=== PATIENT | female | born 1965 | race Caucasian/White ===

== ENCOUNTER 2024-11-26 13:33 | Outpatient (AMB) | payer OTHER, SELFPAY ==
--- OUTSIDE RECORDS SUMMARY | 2024-03-12 10:45 | XMS_ITS ---
Author Organization [facility] Address [address] [place] [address] Care Team Providers Care Diagnostic Technician Name Role Phone Siddharth HUYNH, Percy Primary Care Provider Unavail Kevin Fajardo [phone] Encounters Encounter Location Date Provider Diagnosis [address] [address] 03/12/2024 Kevin Morrow Plan Of Treatment No Information Progress Notes * Chelsea ROSALESdevoneDOB: 7 (59 yo F)Acc No.[id number]:03/12/2024 Progress Note Patient: Ina MAIN Provider: Dylon Morrow D.P.M. :1965 A ge:58 Y S ex:Female Date:03/12/2024 Address:[address] [place], [place] Pcp:Percy Messina MD Subjective: * Chief Complaints: * * Medical History: Objective: * Vitals: Assessment: Plan: * Treatment: * Images: * The named appointment provid er may or may not be the originator of this progress note, and it is not deemed complete until electronically signed by the appointment provider. Sign off status: Pending * Provider: Dylon Morrow D.P.M. Date: 1 Generated for Alo navarro/Ida/eTransmitting on: 0 11/26/2024 05:28 PM EDT
--- OUTSIDE RECORDS SUMMARY | 2024-03-21 10:15 | XMS_ITS ---
Author Organization [facility] Address [address] [place] [address] Care Team Providers Care Interlacer Name Role Phone Siddharth HUYNH, Percy Primary Care Provider Unavail Kevin Fajardo [phone] Encounters Encounter Location Date Provider Diagnosis [address] [address] 03/21/2024 Kevin Morrow Plan Of Treatment No Information Progress Notes * ELANChelseadevoneDOB: 7 (59 yo F)Acc No.[id number]:03/21/2024 Progress Note Patient: Ina MAIN Provider: Dylon Morrow D.P.M. :1965 A ge:58 Y S ex:Female Date:03/21/2024 Address:[address] [place], [place] Pcp:Percy Messina MD Subjective: * Chief Complaints: [...] 0 03/21/2024 Generated for Alo navarro/Ida/eTransmitting on: 0 11/26/2024 05:28 PM EDT
--- NOTE | 2024-11-26 13:35 | A.OFFVIS_ITS ---
Vital Signs 11/26/24 13:41 Height 5 ft Weight 148 lb 2 oz BMI 28.9 BP 132/80 Blood Pressure Location Rt brachial Position Sitting Pulse 85 Pulse Source Pulse Oximeter Pulse Oximetry (%) 98 Oxygen Delivery Method Room Air Intake Visit Reasons: Botox Intake Note: Botox Fitness Centre Manager Required: No Accompanied by: customer care assistant - Marilu Allergies morphine Allergy (Mild, Verified 11/26/24 13:36) Unresponsive HPI Comments Details: ? 59y/o female comes for treatment of migraines with botox.How many migraine days prior to botox How long do the migraines last Intensity of migraine ER visits related to migraine Effectiveness of botox from last two treatment(s) How many migraine days since receiving treatment: Change? in intensity of migraine? Change in frequency of migraine? Change in use of acute medication for migraine? Change in quality of life? ER visits related to migraine? Explanation for any gaps in treatment- Have at least three months elapsed since last treatment (Last botox date - f requency of injections) 3 months ??? Most frequent reported adverse reactions following injection of botox for chronic migraine include neck pain (9%), headache(5%), eyelid ptosis(4%), migraine(4%), muscular weakness(4%), musculuskeletal stiffness(4%), bronchitis(3%), injection site pain (3%), musculoskeletal pain(3%), myalgia(3%), facial paresis(2%), HTN(2%) and muscle spasms(2%) were discussed in detail. ??? Botulinum toxin typeA 200units Lot no [id number] expiration Jan 2027 was diluted with 4 cc of normal saline . ??? Muscles injected- ??? Frontalis 4 sites ??? Procerus 1 site ??? Manager Commodities- 2 sites ??? Temporalis- 8 sites ??? Occipitalis- 6 sites ??? Cervical paraspinals- 4 sites ??? Trapezius- 6 sites- 10 units each ??? 5 units each in 31 site ??? Total use- 185units ??? Discarded-15units [facility] Medical History Chronic migraine without aura or status migrainosus Bronchitis Asthma Diabetes Arthritis Neck pain Back pain Anxiety Depression Chronic migraine with aura Spastic quadriparesis Blindness Surgical History Hx laparoscopic cholecystectomy History of eye removal Hx of breast reduction, elective Social History Alcohol intake: never Patient Tobacco Use Status: Never used Tobacco Physical Exam Vital Signs: Last Vital Signs Pulse 85 11/26/24 13:41 BP 132/80 11/26/24 13:41 Pulse Ox 98 11/26/24 13:41 Oxygen Delivery Method Room Air 11/26/24 13:41 BMI result Body Mass Index 28.9 Const General: cooperative Nutritional Appearance: average body habitus Orientation/consciousness: patient oriented x3 HEENT Head: Yes normal to inspection Neck Other: decreased range of motion Neuro General: patient oriented x3 Office Procedures Botulinum toxin Injection 23728 - Migraine Procedure code (CPT) selection complete Office Meds onabotulinumtoxinA 200 unit solution for injection Performing Provider: Bernice Song MD Performing Location: [facility] Administered by: Bernice Song MD on 11/26/24 14:13 Dose Route Admin Location Dispensed Lot Number Expiration Date [facility] [employer] Operator 185 unit subcut 200 units [id number] ALLERGAN /BOTOX Total Dispensed Waste 200 units 7.5 % Comments: see hpi Assessment & Plan Assessment & Plan (1) Chronic migraine without aura or status migrainosus: Code(s): G43.709 - Chronic migraine without aura, not intractable, without status migrainosus Category: Medical Qualifiers: Intractability: intractable Qualified Code(s): G43.719 - Chronic migraine without aura, intractable, without status migrainosus Plan Patient tolerated the procedure well she will call with any side effects. Orders: Orders AMB Botulinum toxin Injection Today G43.719 - Chronic migraine without aura, intractable, without status migrainosus Coding Level of Care Code Est Pt Level 1 (53017) Diagnoses Intractable chronic migraine without aura and without status migrainosus G43.719 Intractability: intractable CPT Codes Botox Injection - Botox 3: 23024 - Migraine ([id number])
[2024-11-26 13:41] VITALS: BP 132/80; PULSE 85; O2SAT 98; BMI 28.9
--- OUTSIDE RECORDS SUMMARY | 2024-11-26 17:28 | XMS_ITS | Encounter Summary ---
Author Organization [email or web address] Address [address] [place] [address] Care Team Providers Care Table Assembler Metal Name Role Phone Saman Campbell NP Primary Care Provider [phone] Encounter Details Date Type Department Care Team (Latest Contact Info) Description 10/18/2024 Lab Requisition [facility] - Main Lab [address] [facility] [facility] [place] [address] Gregory Alicea MD [address] [place] [id number] Type 2 diabetes mellitus without complications (CMS/HCC V24, CMS/HCC V28); Hyperlipidemia, unspecified; Hypothyroidism, unspecified Social History Tobacco Use Types Packs/Day Years Used Date Smoking Tobacco: Never Smokeless Tobacco: Never Comments No Sex and Gender Information Value Date Recorded Sex Assigned at Female 04/04/2024 1:16 PM EST Legal Sex Female 1:07 AM EST Gender Identity Female 04/04/2024 1:16 PM EST Sexual Orientation Choose not to disclose 2024 1:16 PM EST documented as of this encounter Functional Status * Are you deaf or do you have serious difficulty hearing? Answer Date of Assessment Author No 02/29/2024 7:51 PM EST Nathaniel Srivastava RN * Are you blind or do you have serious difficulty seeing, even when wearing glasses? Answer Date of Assessment Author Yes 02/29/2024 7:51 PM Nathaniel Gonzalez RN * Do you have serious difficulty walking or climbing stairs? Answer Date of Assessment Author No 02/29/2024 7:51 PM Nathaniel Gonzalez RN * Do you have serious difficulty dressing or bathing? Answer Date of Assessment Author No 02/29/2024 7:51 PM Nathaniel Gonzalez RN * Because of a physical, mental, or emotional condition, do you have serious difficulty doing errandsalone such as visiting the doctor? Answer Date of Assessment Author No 02/29/2024 7:51 PM Nathaniel Gonzalez RN documented as of this encounter Mental Status * Because of a physical, mental, or emotional condition, do you have serious difficulty concentrating, remembering, or making decisions? (5 years old or older) Answer Entry Date Author No 02/29/2024 7:51 PM Nathaniel Gonzalez RN documented in this encounter Plan of Treatment Not on file documented as of this encounter Visit Diagnoses Diagnosis Type 2 diabetes mellitus without complications (CMS/HCC V24, CMS/HCC V28) Hyperlipidemia, unspecified Hypothyroidism, unspecified documented in this encounter Care Teams Table Assembler Metal Relationship Specialty Start Date End Date Saman Campbell NP [address] [place] [address] [address] [place], [place] PCP - General Nurse Practitioner 07/04/24 documented as of this encounter
--- OUTSIDE RECORDS SUMMARY | 2024-11-26 17:29 | XMS_ITS | Continuity of Care Document ---
Author Organization [facility] [address] [facility] [address] [place] [address] Phone [phone] Care Team Providers Care Cell Room Supervisor Name Role Phone Kevin Bo M.D. Care Team Information Re ceiver [phone] Percy Messina M.D. Care Team Information Recei yamilex [phone] Problems Active Problems Provider Date Type 1 diabetes mellitus Kevin Bo M.D. Onset: 12/29/2021 Blindness - both eyes Kevin Bo M.D. On set: 12/29/2021 H/O: depression Kevin Bo M.D. Onset: 1 Hirsutism Kevin Bo M.D. Onset: 1 Hyponatremia Kevin Bo M.D. Onset: 0 03/29/2022 Hyperlipidemia Kevin Bo M.D. Onset: 0 03/29/2022 Gastroesophageal reflux disease Kevin arceo M.D. Onset: 03/29/2022 Cholecystectomy Kevin Bo M.D. Onset: 0 08/25/2023 Social History Type Date Description Comments Sex Female Sex Unknown Tobacco Use Start: Unknown Never Smoked Cigarettes ETOH Use Never used alcohol Allergies and adverse reactions Description No Known Drug Allergies Medications Active Medications SIG Qnty Indications Order ing Provider Date B-D Pen NDL SHRT [id number](07/26) Perfecto Use 4 Times A Day as Directed For Injecting Insulin 400units E10.9 Kevin Bo M.D. 07/18/2022 Freestyle Dora 2/[place]/Flash Glucose Monitoring Ddretl1Mvassi Device use as directed with sensors dx: e11.9 1units E11.9 Kevin Bo M.D. 07/12/2022 Freestyle Dora 2/Sensor/Flash Glucose Monitoring Aohahj5Hsdxvr Misc 1 sensor to skin every fourteen days as directed dx: e11.9 6units E11.9 Kevin Bo M.D. 07/12/[address] 1 tab by mouth three times a day Kevin Bo M.D. 03/29/2022 Freestyle Gnlclxv458 Use To Test Blood Sugar Four Times Daily Dx: E10.9 300units E10 Kevin Bo M.D. 02/07/2022 Lantus Gdaxzxat154Qgta/ML Solution Pen-Inject administer 16 Units Under The Skin Once Daily AT Bedtime 15units E11.9 Kevin Bo M.D. 11/16/2021 Alcohol Prep70% Pads Use 1 Pad 8 Times A Day To Test Blood Sugar And Inject Insulin as Directed 720units Kevin Bo M.D. 10/25/[address] 1 by mouth every day Unknown 0 000 Fbekvvlzsf714qs Tablets 1 by mouth three times a day 270tabs Sho Campbell NP Dhwcpvtx19lh Tablets 2 tab by mouth at bedtime 60tabs Bernice Song MD Novolog Vigvlsa976Qahv/ML Solution Pen-Inject inject 3 To 5 Units subcutaneously 3 (Three) Times A Day Before Meals 6units E10.9 Kevin Bo M.D. Rosuvastatin Gjmrqsh14jq Tablets 1 by mouth every day 90tabs Unknown Sertraline QFD888zu Tablets 1 by mouth every day Unknown 0 000 Levothyroxine Kqcewx97xrm Tablets Take One Tablet By Mouth Every Morning 90tabs Kevin Bo M.D. BD Pen Needle/Short/Ultra-F ine/31G X 8mm31G X 8 mm Misc Use To Test 4 Times A Day as Directed Dx: E10.9 360units Kevin Bo M.D. Vital Signs Date Vital Result Comment 08/26/2024 9:46am BP Systolic 130 mmHg BP Diastolic 76 mmHg Heart Rate 72 /min Height 60 inches 5'0 Weight 140.12 lb BMI (Body Mass Index) 27.4 kg/m2 Results Test Acquired Date Facility Test Result H/L Range Note Hemoglobin A1c 08/26/2024 Inhouse Hemoglobin A1c 7.1% Glucose Fingerstick 08/26/2024 Inhouse Glucose Fingerstick 192 Hemoglobin A1c 02/27/2024 Inhouse Hemoglobin A1c 7.4% Glucose Fingerstick 02/27/2024 Inhouse Glucose Fingerstick 180 Glucose Fingerstick 08/25/2023 Inhouse Glucose Fingerstick 126 Hemoglobin A1c 08/25/2023 Inhouse Hemoglobin A1c 6.0% Hemoglobin A1c 11/03/2022 Inhouse Hemoglobin A1c 5.7% Glucose Fingerstick 11/03/2022 Inhouse Glucose Fingerstick 105 TSH With Reflex To FT4 11/03/2022 [facility] TSH With Reflex To FT4 1.07 uIU/mL (0.4-4.2 ) Complete Abc With Diff 11/03/2022 [facility] WBC 3.7 K/MM3 Low (4.0-11. 0) RBC 4.03 M/MM3 Low (4.20-5. 40) HGB 11.9 GM/DL (11.7-15 .5) HCT 37.7 % (35.7-45 .8) MCV 93.5 FL (80.0-10 0.0) MCH 29.5 pg (27.0-34 .0) MCHC 31.6 g/dL Low (33.0-37 .0) PLT 153 K/MM3 (150-460 ) RDW-SD 45.1 FL (<47.0) MPV 10.8 FL (9.4-12. 4) Automated NRBC 0.0 #/100WBC' S Abs. NRBC 0.0 K/MM3 Neut # 1.4 K/MM3 (1.3-7.0 ) Lymph # 1.8 K/MM3 (0.8-3.1 ) [place]# 0.4 K/MM3 (0.4-0.9 ) Eo # 0.1 K/MM3 (0.0-0.4 ) Baso # 0.0 K/MM3 (0.0-0.1 ) Abs. Imm Gran 0.0 K/MM3 Neut 38.9 % Low (44-76) Lymph 48.4 % High (15-43) Monocyte 9.7 % (4.5-10. 5) Eo 2.2 % (0-6) Baso 0.5 % (0-2) Imm Gran 0.3 % Lipid Panel 11/03/2022 [facility] Cholesterol, Total 115 mg/dL (<200) Triglyceride 56 mg/dL (<150) HDL Chol 51 mg/dL (>39) LDL Cholesterol , Calculated 53 mg/dL (0-130) Non HDL Cholesterol (Calc) 64 mg/dL (<160) Comprehensive Metabolic Panl 11/03/2022 [facility] Glucose 104 mg/dL High (70-99) BUN 20 mg/dL (6-20) Creatinine 0.6 mg/dL (0.5-1.0 ) Sodium 140 mmol/L (133-145 ) Potassium 4.3 mmol/L (3.6-5.2 ) Chloride 101 mmol/L (98-107) Bicarbonate 30 mmol/L High (22-29) Anion Gap 9 (4-17) Albumin 4.3 GM/DL (3.4-4.8 ) Calcium 9.5 mg/dL (8.6-10. 5) Bilirubin,Total 0.3 mg/dL (0-1.2 ) Total Protein 7.0 GM/DL (6.2-8.2 ) Ag Ratio 1.6 Ast 21 U/L (0-32) Alk Phos 67 U/L (35-104) Alt 17 U/L (0-33) Estimated GFR Creatinine 105 ML/MIN/1. 73M2 1 Glucose Fingerstick 07/04/2022 Inhouse Glucose Fingerstick 144 Hemoglobin A1c 07/04/2022 Inhouse Hemoglobin A1c 6.6% Glucose Fingerstick 05/04/2022 Inhouse Glucose Fingerstick 178 Comprehensive Metabolic Panl 03/29/2022 [facility] Glucose 252 mg/dL High (70-99) BUN 15 mg/dL (6-20) Creatinine 0.7 mg/dL (0.5-1.0 ) Sodium 139 mmol/L (133-145 ) Potassium 5.3 mmol/L High (3.6-5.2 ) Chloride 100 mmol/L (98-107) Bicarbonate 34 mmol/L High (22-29) Anion Gap 5 (4-17) Albumin 3.9 GM/DL (3.4-4.8 ) Calcium 9.9 mg/dL (8.6-10. 5) Bilirubin,Total 0.2 mg/dL (0-1.2 ) Total Protein 6.3 GM/DL (6.2-8.2 ) Ag Ratio 1.6 Ast 18 U/L (0-32) Alk Phos 81 U/L (35-104) Alt 12 U/L (0-33) Estimated GFR Creatinine 100 ML/MIN/1. 73M2 2 Glucose Fingerstick 03/29/2022 Inhouse Glucose Fingerstick 245 Glucose Fingerstick 12/29/2021 Inhouse Glucose Fingerstick 159 Hemoglobin A1c 12/29/2021 Inhouse Hemoglobin A1c 6.9% Complete Abc With Diff 10/27/2021 [facility] WBC 5.2 K/MM3 (4.0-11. 0) RBC 4.04 M/MM3 Low (4.20-5. 40) HGB 11.8 GM/DL (11.7-15 .5) HCT 36.8 % (35.7-45 .8) MCV 91.1 FL (80.0-10 0.0) MCH 29.2 pg (27.0-34 .0) MCHC 32.1 g/dL Low (33.0-37 .0) PLT 134 K/MM3 Low (150-460 ) RDW-SD 43.5 FL (<47.0) MPV 10.6 FL (9.4-12. 4) Automated NRBC 0.0 #/100WBC' S Abs. NRBC 0.0 K/MM3 Neut # 2.0 K/MM3 (1.3-7.0 ) Lymph # 2.5 K/MM3 (0.8-3.1 ) [place]# 0.4 K/MM3 (0.4-0.9 ) Eo # 0.1 K/MM3 (0.0-0.4 ) Baso # 0.0 K/MM3 (0.0-0.1 ) Abs. Imm Gran 0.0 K/MM3 Neut 38.9 % Low (44-76) Lymph 49.3 % High (15-43) Monocyte 8.3 % (4.5-10. 5) Eo 2.3 % (0-6) Baso 0.6 % (0-2) Imm Gran 0.6 % Comprehensive Metabolic Panl 10/27/2021 [facility] Glucose 108 mg/dL High (70-99) BUN 20 mg/dL (6-20) Creatinine 0.8 mg/dL (0.5-1.0 ) Sodium 139 mmol/L (133-145 ) Potassium 4.5 mmol/L (3.6-5.2 ) Chloride 100 mmol/L (98-107) Bicarbonate 32 mmol/L High (22-29) Anion Gap 7 (4-17) Albumin 4.4 GM/DL (3.4-4.8 ) Calcium 9.7 mg/dL (8.6-10. 5) Bilirubin,Total 0.2 mg/dL (0-1.2 ) Total Protein 6.9 GM/DL (6.2-8.2 ) Ag Ratio 1.8 Ast 15 U/L (0-32) Alk Phos 73 U/L (35-104) Alt 13 U/L (0-33) Estimated GFR Creatinine 90 ML/MIN/1. 73M2 3 Lipid Panel 10/27/2021 [facility] Cholesterol, Total 120 mg/dL (<200) Triglyceride 55 mg/dL (<150) HDL Chol 49 mg/dL (>39) LDL Cholesterol , Calculated 60 mg/dL (0-130) Non HDL Cholesterol (Calc) 71 mg/dL (<160) Thyroid Panel 10/27/2021 [facility] Free T4 1.18 ng/dL (0.70-1. 80) TSH 1.67 uIU/mL (0.4-4.2 ) 1 Creatinine based est imated glomerular filtration (eGFR) in adults is calculated using the [employer] recommended 2021 CKD-EPI equation. Estimates GFR from serum creatinine, age and sex. 2 Creatinine based est imated glomerular filtration (eGFR) in adults is calculated using the [employer] recommended 2021 CKD-EPI equation. Estimates GFR from serum creatinine, age and sex. 3 Creatinine based est imated glomerular filtration (eGFR) in adults is calculated using the [employer] recommended 2021 CKD-EPI equation. Estimates GFR from serum creatinine, age and sex. Medical Devices Description No Information Available Encounters Type Date Location Provider Dx Diagnosis Office Visit 08/26/2024 10:00a Main Office Kevin Bo M.D. E10.9 Type 1 diabetes mellitus without complications Assessments Date Code Description Provider 08/26/2024 E10.9 Type 1 diabetes mellitus without complications Kevin Bo M.D. Plan of Treatment Future Appointment(s):* 01/15/2025 10:45 am - Kevin Bo M.D. at Main Office 08/26/2024 - Kevin Bo M.D.* E10.9 Type 1 diabetes mellitus without complications Functional Status Description No Information Available Mental Status Description No Information Available Referrals Description No Information Available
--- OUTSIDE RECORDS SUMMARY | 2024-11-26 17:29 | XMS_ITS | Encounter Summary ---
Author Organization [employer] Address [address] [place] [address] Care Team Providers Care Rubbish Collector Name Role Phone Saman Campbell NP Primary Care Provider [phone] Encounter Details Date Type Department Care Team (Latest Contact Info) Description 10/18/[address] [facility] - Main Lab 299 [facility] [place] [address] Gregory Alicea MD [address] [place] [address] Type 2 diabetes mellitus without complications (CMS/HCC V24, CMS/HCC V28); Hyperlipidemia, unspecified Social History Tobacco Use Types Packs/Day [...] of Assessment Author Yes 02/29/2024 7:51 PM EST Nathaniel Srivastava RN * Do you have serious difficulty [...] on file documented as of this encounter Procedures Procedure Name Priority Date/Time Associated Diagnosis Comments LIPID PANEL WITH REFLEX TO DIRECT LDL Routine 10/18/2024 5:44 AM EDT Type 2 diabetes mellitus without complications ([facility] V24, [facility] V28) Hyperlipidemia, unspecified COMPLETE BLOOD COUNT Routine 10/18/2024 5:44 AM EDT Type 2 diabetes mellitus without complications ([facility] V24, CMS/[facility] V28) Hyperlipidemia, unspecified THYROID STIMULATING HORMONE Routine 10/18/2024 5:44 AM EDT Type 2 diabetes mellitus without complications ([facility] V24, CMS/HCC V28) Hyperlipidemia, unspecified MAGNESIUM Routine 10/18/2024 5:44 AM EDT Type 2 diabetes mellitus without complications ([facility]/HCC V24, CMS/[facility] V28) Hyperlipidemia, unspecified HEMOGLOBIN A1C Routine 10/18/2024 5:44 AM EDT Type 2 diabetes mellitus without complications ([facility] V24, CMS/[facility] V28) Hyperlipidemia, unspecified VITAMIN B12 Routine 10/18/2024 5:44 AM EDT Type 2 diabetes mellitus without complications ([facility] V24, CMS/[facility] V28) Hyperlipidemia, unspecified BASIC METABOLIC PANEL Routine 10/18/2024 5:44 AM EDT Type 2 diabetes mellitus without complications ([facility]/HCC V24, [facility] V28) Hyperlipidemia, unspecified documented in this encounter Results * Lipid panel with reflex to direct LDL (10/18/2024 5:44 AM EDT) Cholesterol 99 0 - 200 mg/dL LAB CHEMISTRY METHOD 10/18/2024 10:37 AM EDT [facility] Triglycerides 93 0 - 150 mg/dL LAB CHEMISTRY METHOD 10/18/2024 10:37 AM EDT [facility] HDL 50 >=40 mg/dL LAB CHEMISTRY METHOD 10/18/2024 10:37 AM [facility] LDL Calculated 30 0 - 100 mg/dL LAB CHEMISTRY METHOD 10/18/2024 10:37 AM [facility] Comment:Estimated LDL Calcul ated using equation: Total cholesterol - HDL cholesterol - (Triglycerides/5) VLDL Cholesterol Reji 18.6 mg/dL LAB CHEMISTRY METHOD 10/18/2024 10:37 AM [facility] Non HDL Chol. (LDL+VLDL) 49 <145 mg/dL LAB CHEMISTRY METHOD 10/18/2024 10:37 AM [facility] Chol/HDL Ratio 2.0 0.0 - 4.4 LAB CHEMISTRY METHOD 10/18/2024 10:37 AM [facility] Blood Venous blood specimen / Unknown Venipuncture / Unknown 10/18/2024 5:44 AM EDT 10/18/2024 8:27 AM EDT us Gregory Alicea MD LAB BLOOD ORDERABLES Final R esult [facility] [address] [place] [address], * Thyroid stimulating hormone (10/18/2024 5:44 AM EDT) TSH 1.86 0.40 - 4.00 mcIU/mL LAB CHEMISTRY METHOD 10/18/2024 11:50 AM EDT [facility] Blood Venous blood specimen / Unknown Venipuncture / Unknown 10/18/2024 5:44 AM EDT 10/18/2024 8:27 AM EDT us Gregory Alicea MD LAB BLOOD ORDERABLES Final R esult Performing Organization Address [facility] de Phone Number [facility] [address] [place] [address], [place] [phone] * (ABNORMAL) Vitamin B12 (10/18/2024 5:44 AM EDT) [facility] Vitamin B-12 967(H) 250 - 900 pcg/mL LAB CHEMISTRY METHOD 10/18/2024 10:37 AM EDT [facility] Blood Venous blood specimen / Unknown Venipuncture / Unknown 10/18/2024 5:44 AM EDT 10/18/2024 8:27 AM EDT us Gregory Alicea MD LAB BLOOD ORDERABLES Final R esult Performing Organization Address [facility] de Phone Number [facility] [address] [place] [address], [place] [phone] * Magnesium (10/18/2024 5:44 AM EDT) [facility] Magnesium 1.9 1.9 - 2.6 mg/dL LAB CHEMISTRY METHOD 10/18/2024 10:07 AM EDT [facility] Blood Venous blood specimen / Unknown Venipuncture / Unknown 10/18/2024 5:44 AM EDT 10/18/2024 8:27 AM EDT us Gregory Alicea MD LAB BLOOD ORDERABLES Final R esult Performing Organization Address City/[facility] Co de Phone Number [facility] [address] [place] [address], [place] [phone] * (ABNORMAL) Hemoglobin A1c (10/18/2024 5:44 AM EDT) [facility] Hemoglobin A1C 7.0(H) <6.5 % LAB CHEMISTRY METHOD 10/18/2024 2:08 PM EDT [facility] Mean Bld Glu Estim. 154 mg/dL LAB CHEMISTRY METHOD 10/18/2024 2:08 PM EDT [facility] Blood Venous blood specimen / Unknown Venipuncture / Unknown 10/18/2024 5:44 AM EDT 10/18/2024 8:27 AM EDT Gregory Alicea MD LAB BLOOD ORDERABLES Final R esult [facility] [address] [place] [address], [place] [phone] * (ABNORMAL) Basic metabolic panel (10/18/2024 5:44 AM EDT) [facility] Sodium 133 133 - 145 mmol/L LAB CHEMISTRY METHOD 10/18/2024 10:07 AM [facility] Potassium 4.3 3.5 - 5.5 mmol/L LAB CHEMISTRY METHOD 10/18/2024 10:07 AM [facility] Chloride 100 96 - 110 mmol/L LAB CHEMISTRY METHOD 10/18/2024 10:07 AM [facility] CO2 29 21 - 32 mmol/L LAB CHEMISTRY METHOD 10/18/2024 10:07 AM [facility] Anion Gap 4 3 - 11 LAB CHEMISTRY METHOD 10/18/2024 10:07 AM [facility] Glucose 164(H) 70 - 100 mg/dL LAB CHEMISTRY METHOD 10/18/2024 10:07 AM [facility] BUN 17 5 - 25 mg/dL LAB CHEMISTRY METHOD 10/18/2024 10:07 AM EDT [facility] Creatinine 0.53 0.50 - 1.10 mg/dL LAB CHEMISTRY METHOD [facility] eGFR 108 >=60 mL/min/1. 73m2 LAB CHEMISTRY METHOD 10/18/2024 10:07 AM [facility] Comment:Calculation based on the Chronic Kidney Disease Epidemiology Collaboration (CKD-EPI) equation refit without adjustment for race. BUN/Creatinine Ratio 32.1 LAB CHEMISTRY METHOD 10/18/2024 10:07 AM [facility] Calcium 9.3 8.5 - 10.5 mg/dL LAB CHEMISTRY METHOD 10/18/2024 10:07 AM [facility] Blood Venous blood specimen / Unknown Venipuncture / Unknown 10/18/2024 5:44 AM EDT 10/18/2024 8:27 AM EDT us Gregory Alicea MD LAB BLOOD ORDERABLES Final R esult [facility] [address] [place] [address], * (ABNORMAL) Complete blood count (10/18/2024 5:44 AM EDT) WBC 4.7(L) 4.8 - 10.8 K/mcL LAB HEMETOLOGY METHOD 10/18/2024 9:47 AM EDT [facility] RBC 3.80 3.80 - 4.80 M/mcL LAB HEMETOLOGY METHOD 10/18/2024 9:47 AM EDT [facility] Hemoglobin 11.2(L) 11.5 - 16.0 g/dL LAB HEMETOLOGY METHOD [facility] Hematocrit 33.6(L) 35.0 - 47.0 % LAB HEMETOLOGY METHOD 10/18/2024 9:47 AM EDT [facility] MCV 89.4 79.0 - 98.0 FL LAB HEMETOLOGY METHOD 10/18/2024 9:47 AM EDT [facility] MCH 29.8 27.0 - 32.0 pcg LAB HEMETOLOGY METHOD 10/18/2024 9:47 AM EDT [facility] MCHC 33.3 32.0 - 37.0 g/dL LAB HEMETOLOGY METHOD 10/18/2024 9:47 AM T [facility] RDW 13.2 11.0 - 15.0 % LAB HEMETOLOGY METHOD 10/18/2024 9:47 AM [facility] Platelets 188 130 - 400 K/mcL LAB HEMETOLOGY METHOD 10/18/2024 9:47 AM T [facility] MPV 9.9 7.0 - 11.0 FL LAB HEMETOLOGY METHOD 10/18/2024 9:47 AM EDT [facility] NRBC 0.0 <1.0 % LAB HEMETOLOGY METHOD 10/18/2024 9:47 AM [facility] NRBC Absolute 0.00 <0.10 K/mcL LAB HEMETOLOGY METHOD 10/18/2024 9:47 AM [facility] Blood Venous blood specimen / Unknown Venipuncture / Unknown 10/18/2024 5:44 AM EDT 10/18/2024 8:27 AM EDT us Gregory Alicea MD LAB BLOOD ORDERABLES Final R esult [facility] [address] [place] [address], documented in this encounter Visit Diagnoses Diagnosis Type 2 diabetes mellitus without complications (CMS/HCC V24, CMS/HCC V28) Hyperlipidemia, unspecified documented in this encounter Care Teams Rubbish Collector Relationship Specialty Start Date End Date Saman Campbell NP [address] [facility] [address] [place], [place] PCP - General Nurse Practitioner 07/04/24 documented as of this encounter
--- OUTSIDE RECORDS SUMMARY | 2024-11-26 17:29 | XMS_ITS | Encounter Summary ---
Author Organization [employer] [facility] Address [address] [place] [address] Care Team Providers Care Shale Miner Blasting Name Role Phone Saman Campbell NP Primary Care Provider [phone] Encounter Details Date Type Department Care Team (Late st Contact Info) Description 06/07/2024 Lab Requisition [facility] - Main Lab 299 [facility] [place] [address] Gregory Alicea MD [address] [place] [address] Hypo-osmolality and hyponatremia; Hyperlipidemia, unspecified; Hypothyroidism, unspecified Social History Tobacco Use Types Packs/Day Years Used Date Smoking Tobacco: Never Smokeless Tobacco: Never Comments Unknown Sex and Gender Information Value Date Recorded [...] as of this encounter Visit Diagnoses Diagnosis Hypo-osmolality and hyponatremia Hyperlipidemia, unspecified Hypothyroidism, unspecified documented in this encounter Care Teams Shale Miner Blasting Relationship Specialty Start Date End Date Saman Campbell NP [address] [place] [address] [address] [place], [place] PCP - General Nurse Practitioner 07/04/24 documented as of this encounter
--- OUTSIDE RECORDS SUMMARY | 2024-11-26 17:29 | XMS_ITS | Encounter Summary ---
Author Organization [email or web address] Address [address] [place] [address] Care Team Providers Care Water Resource Engineer Name Role Phone Saman Campbell NP Primary Care Provider [phone] Encounter Details Date Type Department Care Team (Latest Contact Info) Description 05/27/2024 Lab Requisition [facility] - Main Lab 299 [facility] [place] [address] Gregory Alicea MD [address] [place] [address] Hypothyroidism, unspecified; Type 2 diabetes mellitus without complications (CMS/HCC V24, CMS/HCC V28) Social History Tobacco Use Types Packs/Day Years [...] Procedure Name Priority Date/Time Associated Diagnosis Comments COMPLETE BLOOD COUNT Routine 05/28/2024 6:33 AM EDT Hypothyroidism, unspecified Type 2 diabetes mellitus without complications ([facility]/HCC) BASIC METABOLIC PANEL Routine 05/28/2024 6:33 AM EDT Hypothyroidism, unspecified Type 2 diabetes mellitus without complications ([facility]/HCC) documented in this encounter Results * (ABNORMAL) Basic metabolic panel (05/28/2024 6:33 AM EDT) Sodium 132(L) 133 - 145 mmol/L LAB CHEMISTRY METHOD 05/28/2024 8:[address] [facility] Potassium 4.4 3.5 - 5.5 mmol/L LAB CHEMISTRY METHOD 05/28/2024 8:[address] [facility] Comment:Hemolysis present Chloride 96 96 - 110 mmol/L LAB CHEMISTRY METHOD 05/28/2024 8:[address] [facility] CO2 30 21 - 32 mmol/L LAB CHEMISTRY METHOD 05/28/2024 8:[address] [facility] Anion Gap 6 3 - 11 LAB CHEMISTRY METHOD 05/28/2024 8:[address] [facility] Glucose 83 70 - 100 mg/dL LAB CHEMISTRY METHOD 05/28/2024 8:47 AM EDT [facility] BUN 15 5 - 25 mg/dL LAB CHEMISTRY METHOD 05/28/2024 8:47 AM EDT [facility] Creatinine 0.53 0.50 - 1.10 mg/dL LAB CHEMISTRY METHOD 05/28/2024 8:47 AM EDT [facility] eGFR 108 >=60 mL/min/1. 73m2 LAB CHEMISTRY METHOD 05/28/2024 8:47 AM EDT [facility] Comment:Calculation based on the Chronic Kidney Disease Epidemiology Collaboration (CKD-EPI) equation refit without adjustment for race. BUN/Creatinine Ratio 28.3 LAB CHEMISTRY METHOD 05/28/2024 8:47 AM EDT [facility] Calcium 9.6 8.5 - 10.5 mg/dL LAB CHEMISTRY METHOD 05/28/2024 8:47 AM EDT [facility] Blood Venous blood specimen / Unknown 05/28/2024 6:33 AM EDT 05/28/2024 8:04 AM EDT us Gregory Alicea MD LAB BLOOD ORDERABLES Final R esult [facility] [address] [place] [address], * (ABNORMAL) Complete blood count (05/28/2024 6:33 AM EDT) WBC 4.4(L) 4.8 - 10.8 K/mcL LAB HEMETOLOGY METHOD 05/28/2024 8:16 AM EDT [facility] RBC 4.30 3.80 - 4.80 M/mcL LAB HEMETOLOGY METHOD 05/28/2024 8:16 AM EDT [facility] Hemoglobin 12.9 11.5 - 16.0 g/dL LAB HEMETOLOGY METHOD 05/28/2024 8:16 AM EDT [facility] Hematocrit 38.8 35.0 - 47.0 % LAB HEMETOLOGY METHOD 05/28/2024 8:16 AM EDT [facility] MCV 89.4 79.0 - 98.0 FL LAB HEMETOLOGY METHOD 05/28/2024 8:16 AM EDT [facility] MCH 29.7 27.0 - 32.0 pcg LAB HEMETOLOGY METHOD 05/28/2024 8:16 AM EDT [facility] MCHC 33.2 32.0 - 37.0 g/dL LAB HEMETOLOGY METHOD 05/28/2024 8:16 AM EDT [facility] RDW 13.2 11.0 - 15.0 % LAB HEMETOLOGY METHOD 05/28/2024 8:16 AM EDT [facility] Platelets 146 130 - 400 K/mcL LAB HEMETOLOGY METHOD 05/28/2024 8:16 AM EDT [facility] MPV 11.0 7.0 - 11.0 FL LAB HEMETOLOGY METHOD 05/28/2024 8:16 AM EDT [facility] NRBC 0.0 <1.0 % LAB HEMETOLOGY METHOD 05/28/2024 8:16 AM EDT [facility] NRBC Absolute 0.00 <0.10 K/mcL LAB HEMETOLOGY METHOD 05/28/2024 8:16 AM EDT [facility] Blood Venous blood specimen / Unknown 05/28/2024 6:33 AM EDT 05/28/2024 8:03 AM EDT us Gregory Alicea MD LAB BLOOD ORDERABLES Final R esult [facility] [address] [place] [address], documented in this encounter Visit Diagnoses Diagnosis Hypothyroidism, unspecified Type 2 diabetes mellitus without complications (CMS/HCC V24, CMS/[facility] V28) documented in this encounter Care Teams Water Resource Engineer Relationship Specialty Start Date End Date Saman Campbell NP [address] [place] [address] [address] [place], [place] PCP - General Nurse Practitioner 07/04/24 documented as of this encounter
--- OUTSIDE RECORDS SUMMARY | 2024-11-26 17:29 | XMS_ITS | Patient Health Record ---
Author Organization [facility] Address [address] [place] [address] Care Team Providers Care Personal Banking Advisor Name Role Phone Siddharth HUYNH, Percy Primary Care Provider Unavail Kevin Fajardo Unavailable [phone] Reason For Referral No Information Encounters Encounter Location Date Provider Diagnosis [facility] [address] [place] [address] 02/07/2024 Kevin Morrow [facility] [address] [place] [address] 03/11/2024 Kevin Morrow Plan Of Treatment No Information Insurance Providers Payer Name Payer Address Payer Phone Subscriber Number Group Number Insured Name Patient Relationship to Insured Coverage Start Date Coverage End Date [facility] [employer] Claims [address] JULISA Rogers [id number] Ina Ansari Self - patient is the insured
--- OUTSIDE RECORDS SUMMARY | 2024-11-26 17:29 | XMS_ITS | Encounter Summary ---
Author Organization [employer] [facility] Address [address] [place] [address] Care Team Providers Care Pressroom Worker Name Role Phone Saman Campbell NP Primary Care Provider [phone] Encounter Details Date Type Department Care Team (Latest Contact Info) Description 03/07/2024 Lab Requisition [facility] - Main Lab [address] [facility] [place] [address] Edda Esparza MD [address] [place] [address] Type 2 diabetes mellitus without complications (CMS/HCC [...] Assessment Author No 02/29/2024 7:51 PM EST Srivastava, Nathaniel en, RN * Do you have serious difficulty [...] Associated Diagnosis Comments COMPLETE BLOOD COUNT Routine 03/07/2024 5:34 AM EST Type 2 diabetes mellitus without complications ([facility]/HCC) COMPREHENSIVE METABOLIC PANEL Routine 03/07/2024 5:34 AM EST Type 2 diabetes mellitus without complications ([facility]/HCC) documented in this encounter Results * (ABNORMAL) Comprehensive metabolic panel (03/07/2024 5:34 AM EST) Sodium 136 133 - 145 mmol/L LAB CHEMISTRY METHOD 03/07/2024 12:19 PM [facility] Potassium 4.6 3.5 - 5.5 mmol/L LAB CHEMISTRY METHOD 03/07/2024 12:19 PM [facility] Chloride 103 96 - 110 mmol/L LAB CHEMISTRY METHOD 03/07/2024 12:19 PM [facility] CO2 30 21 - 32 mmol/L LAB CHEMISTRY METHOD 03/07/2024 12:19 PM [facility] Anion Gap 3 3 - 11 LAB CHEMISTRY METHOD 03/07/2024 12:19 PM [facility] Glucose 216(H) 70 - 100 mg/dL LAB CHEMISTRY METHOD 03/07/2024 12:19 PM [facility] BUN 25 5 - 25 mg/dL LAB CHEMISTRY METHOD 03/07/2024 12:19 PM [facility] Creatinine 0.63 0.50 - 1.10 mg/dL LAB CHEMISTRY METHOD 03/07/2024 12:19 PM [facility] eGFR 104 >=60 mL/min/1. 73m2 LAB CHEMISTRY METHOD 03/07/2024 12:19 PM [facility] Comment:Calculation based on the Chronic Kidney Disease Epidemiology Collaboration (CKD-EPI) equation refit without adjustment for race. BUN/Creatinine Ratio 39.7 LAB CHEMISTRY METHOD 03/07/2024 12:19 PM [facility] Calcium 9.0 8.5 - 10.5 mg/dL LAB CHEMISTRY METHOD 03/07/2024 12:19 PM [facility] AST (SGOT) 7(L) 10 - 42 unit/L LAB CHEMISTRY METHOD 03/07/2024 12:19 PM [facility] ALT (SGPT) 14 10 - 60 unit/L LAB CHEMISTRY METHOD 03/07/2024 12:19 PM [facility] Alkaline Phosphatase 87 42 - 121 unit/L LAB CHEMISTRY METHOD 03/07/2024 12:19 PM [facility] Total Protein 6.4 6.0 - 8.0 g/dL LAB CHEMISTRY METHOD 03/07/2024 12:19 PM [facility] Albumin 2.9(L) 3.2 - 5.0 g/dL LAB CHEMISTRY METHOD 03/07/2024 12:19 PM [facility] Total Bilirubin 0.3 0.0 - 1.4 mg/dL LAB CHEMISTRY METHOD 03/07/2024 12:19 PM [facility] Blood Venous blood specimen / Unknown Venipuncture / Unknown 03/07/2024 5:34 AM EST 03/07/2024 11:13 AM EST us Edda Esparza MD LAB BLOOD ORDERABLES Final Resu lt [facility] [address] [place] [address], * (ABNORMAL) Complete blood count (03/07/2024 5:34 AM EST) WBC 4.7(L) 4.8 - 10.8 K/mcL LAB HEMETOLOGY METHOD 03/07/2024 11:56 AM EST [facility] RBC 3.80 3.80 - 4.80 M/mcL LAB HEMETOLOGY METHOD 03/07/2024 11:56 AM EST [facility] Hemoglobin 11.0(L) 11.5 - 16.0 g/dL LAB HEMETOLOGY METHOD 03/07/2024 11:56 AM [facility] Hematocrit 34.2(L) 35.0 - 47.0 % LAB HEMETOLOGY METHOD 03/07/2024 11:56 AM EST [facility] MCV 90.7 79.0 - 98.0 FL LAB HEMETOLOGY METHOD 03/07/2024 11:56 AM EST [facility] MCH 29.2 27.0 - 32.0 pcg LAB HEMETOLOGY METHOD 03/07/2024 11:56 AM EST [facility] MCHC 32.2 32.0 - 37.0 g/dL LAB HEMETOLOGY METHOD 03/07/2024 11:56 AM EST [facility] RDW 13.5 11.0 - 15.0 % LAB HEMETOLOGY METHOD 03/07/2024 11:56 AM EST [facility] Platelets 199 130 - 400 K/mcL LAB HEMETOLOGY METHOD 03/07/2024 11:56 AM [facility] MPV 10.3 7.0 - 11.0 FL LAB HEMETOLOGY METHOD 03/07/2024 11:56 AM EST [facility] NRBC 0.0 <1.0 % LAB HEMETOLOGY METHOD 03/07/2024 11:56 AM EST [facility] NRBC Absolute 0.00 <0.10 K/mcL LAB HEMETOLOGY METHOD 03/07/2024 11:56 AM EST [facility] Blood Venous blood specimen / Unknown Venipuncture / Unknown 03/07/2024 5:34 AM EST 03/07/2024 11:13 AM EST us Edda Esparza MD LAB BLOOD ORDERABLES Final Resu lt [facility] [address] [place] [address], documented in this encounter Visit Diagnoses Diagnosis Type 2 diabetes mellitus without complications (CMS/HCC V24, CMS/HCC V28) documented in this encounter Care Teams Pressroom Worker Relationship Specialty Start Date End Date Saman Campbell NP [address] [place] [address] Rd [address] [place], [place] PCP - General Nurse Practitioner 07/04/24 documented as of this encounter
--- OUTSIDE RECORDS SUMMARY | 2024-11-26 17:29 | XMS_ITS | Encounter Summary ---
Author Organization [employer] Address [address] [place] [address] Care Team Providers Care Administrative Support Specialist Name Role Phone Saman Campbell NP Primary Care Provider [phone] Encounter Details Date Type Department Care Team (Late st Contact Info) Description 03/18/2024 Lab Requisition [facility] - Main Lab [address] [facility] [place] [address] Edda Esparza MD [address] [place] [address] Overactive bladder; Gastro-esophageal reflux disease without esophagitis; Unspecified asthma, uncomplicated; Hyperlipidemia, unspecified Social History Tobacco Use Types [...] 7:51 PM EST Nathaniel Srivastava RN * Because of a physical, mental, or emotional condition, do you have serious difficulty doing errandsalone such as visiting the doctor? Answer Date of Assessment Author No 02/29/2024 7:51 PM EST Nathaniel Srivastava RN documented as of this encounter Mental Status * Because of a physical, mental, or emotional condition, do you have serious difficulty concentrating, remembering, or making decisions? (5 years old or older) Answer Entry Date Author No 02/29/2024 7:51 PM EST Nathaniel Srivastava RN documented in this encounter Plan of Treatment Not on file documented as of this encounter Procedures Procedure Name Priority Date/Time Associated Diagnosis Comments COMPLETE BLOOD COUNT Routine 03/18/2024 5:12 AM EST Overactive bladder Gastro-esophageal reflux disease without esophagitis Unspecified asthma, uncomplicated Hyperlipidemia, unspecified BASIC METABOLIC PANEL Routine 03/18/2024 5:12 AM EST Overactive bladder Gastro-esophageal reflux disease without esophagitis Unspecified asthma, uncomplicated Hyperlipidemia, unspecified documented in this encounter Results * (ABNORMAL) Basic metabolic panel (03/18/2024 5:12 AM EST) Sodium 134 133 - 145 mmol/L LAB CHEMISTRY METHOD 03/18/2024 11:42 AM [facility] Potassium 4.5 3.5 - 5.5 mmol/L LAB CHEMISTRY METHOD 03/18/2024 11:42 AM [facility] Chloride 102 96 - 110 mmol/L LAB CHEMISTRY METHOD 03/18/2024 11:42 AM [facility] CO2 27 21 - 32 mmol/L LAB CHEMISTRY METHOD 03/18/2024 11:42 AM [facility] Anion Gap 5 3 - 11 LAB CHEMISTRY METHOD 03/18/2024 11:42 AM [facility] Glucose 214(H) 70 - 100 mg/dL LAB CHEMISTRY METHOD 03/18/2024 11:42 AM EST [facility] BUN 16 5 - 25 mg/dL LAB CHEMISTRY METHOD 03/18/2024 11:42 AM [facility] Creatinine 0.61 0.50 - 1.10 mg/dL LAB CHEMISTRY METHOD 03/18/2024 11:42 AM [facility] eGFR 104 >=60 mL/min/1. 73m2 LAB CHEMISTRY METHOD 03/18/2024 11:42 AM [facility] Comment:Calculation based on the Chronic Kidney Disease Epidemiology Collaboration (CKD-EPI) equation refit without adjustment for race. BUN/Creatinine Ratio 26.2 LAB CHEMISTRY METHOD 03/18/2024 11:42 AM [facility] Calcium 8.9 8.5 - 10.5 mg/dL LAB CHEMISTRY METHOD 03/18/2024 11:42 AM [facility] Blood Venous blood specimen / Unknown Venipuncture / Unknown 03/18/2024 5:12 AM EST 03/18/2024 10:16 AM EST us Edda Esparza MD LAB BLOOD ORDERABLES Final Resu lt [facility] [address] [place] [address], [place] [phone] * (ABNORMAL) Complete blood count (03/18/2024 5:12 AM EST) WBC 4.6(L) 4.8 - 10.8 K/mcL LAB HEMETOLOGY METHOD 03/18/2024 11:12 AM EST [facility] RBC 4.10 3.80 - 4.80 M/mcL LAB HEMETOLOGY METHOD 03/18/2024 11:12 AM [facility] Hemoglobin 11.9 11.5 - 16.0 g/dL LAB HEMETOLOGY METHOD 03/18/2024 11:12 AM [facility] Hematocrit 37.1 35.0 - 47.0 % LAB HEMETOLOGY METHOD 03/18/2024 11:12 AM [facility] MCV 89.6 79.0 - 98.0 FL LAB HEMETOLOGY METHOD 03/18/2024 11:12 AM [facility] MCH 28.7 27.0 - 32.0 pcg LAB HEMETOLOGY METHOD 03/18/2024 11:12 AM [facility] MCHC 32.1 32.0 - 37.0 g/dL LAB HEMETOLOGY METHOD 03/18/2024 11:12 AM [facility] RDW 13.2 11.0 - 15.0 % LAB HEMETOLOGY METHOD 03/18/2024 11:12 AM [facility] Platelets 239 130 - 400 K/mcL LAB HEMETOLOGY METHOD 03/18/2024 11:12 AM [facility] MPV 10.3 7.0 - 11.0 FL LAB HEMETOLOGY METHOD 03/18/2024 11:12 AM [facility] NRBC 0.0 <1.0 % LAB HEMETOLOGY METHOD 03/18/2024 11:12 AM [facility] NRBC Absolute 0.00 <0.10 K/mcL LAB HEMETOLOGY METHOD 03/18/2024 11:12 AM [facility] Blood Venous blood specimen / Unknown Venipuncture / Unknown 03/18/2024 5:12 AM EST 03/18/2024 10:16 AM EST us Edda Esparza MD LAB BLOOD ORDERABLES Final Resu lt [facility] [address] [place] [address], [place] [phone] documented in this encounter Visit Diagnoses Diagnosis Overactive bladder Hypertonicity of bladder Gastro-esophageal reflux disease without esophagitis Unspecified asthma, uncomplicated Hyperlipidemia, unspecified documented in this encounter Care Teams Administrative Support Specialist Relationship Specialty Start Date End Date Saman Campbell NP [address] [facility] [address] [place], [place] PCP - General Nurse Practitioner 07/04/24 documented as of this encounter
--- OUTSIDE RECORDS SUMMARY | 2024-11-26 17:29 | XMS_ITS | Encounter Summary ---
Author Organization [employer] Address [address] [place] [address] Care Team Providers Care Washing Machine Operator Name Role Phone Saman Campbell NP Primary Care Provider [phone] Encounter Details Date Type Department Care Team (Latest Contact Info) Description 06/03/2024 Lab Requisition [facility] - Main Lab 299 [facility] [place] [address] Gregory Alicea MD [address] [place] [address] Hypothyroidism, unspecified; Type 2 diabetes mellitus without [...] Associated Diagnosis Comments COMPLETE BLOOD COUNT Routine 06/04/2024 5:10 AM EDT Hypothyroidism, unspecified Type 2 diabetes mellitus without complications BASIC METABOLIC PANEL Routine 06/04/2024 5:10 AM EDT Hypothyroidism, unspecified Type 2 diabetes mellitus without complications documented in this encounter Results * (ABNORMAL) Basic metabolic panel (06/04/2024 5:10 AM EDT) Sodium 131(L) 133 - 145 mmol/L LAB CHEMISTRY METHOD 06/04/2024 12:30 PM [facility] Potassium 4.0 3.5 - 5.5 mmol/L LAB CHEMISTRY METHOD 06/04/2024 12:30 PM [facility] Chloride 96 96 - 110 mmol/L LAB CHEMISTRY METHOD 06/04/2024 12:30 PM [facility] CO2 31 21 - 32 mmol/L LAB CHEMISTRY METHOD 06/04/2024 12:30 PM [facility] Anion Gap 4 3 - 11 LAB CHEMISTRY METHOD 06/04/2024 12:30 PM [facility] Glucose 67(L) 70 - 100 mg/dL LAB CHEMISTRY METHOD 06/04/2024 12:30 PM [facility] BUN 14 5 - 25 mg/dL LAB CHEMISTRY METHOD 06/04/2024 12:30 PM EDT [facility] Creatinine 0.44(L) 0.50 - 1.10 mg/dL LAB CHEMISTRY METHOD 06/04/2024 12:30 PM EDT [facility] eGFR 113 >=60 mL/min/1. 73m2 LAB CHEMISTRY METHOD 06/04/2024 12:30 PM EDT [facility] Comment:Calculation based on the Chronic Kidney Disease Epidemiology Collaboration (CKD-EPI) equation refit without adjustment for race. BUN/Creatinine Ratio 31.8 LAB CHEMISTRY METHOD 06/04/2024 12:30 PM EDT [facility] Calcium 8.9 8.5 - 10.5 mg/dL LAB CHEMISTRY METHOD 06/04/2024 12:30 PM EDT [facility] Blood Venous blood specimen / Unknown Venipuncture / Unknown 06/04/2024 5:10 AM EDT 06/04/2024 10:02 AM EDT us Gregory Alicea MD LAB BLOOD ORDERABLES Final R esult [facility] [address] [place] [address], * (ABNORMAL) Complete blood count (06/04/2024 5:10 AM EDT) WBC 4.3(L) 4.8 - 10.8 K/mcL LAB HEMETOLOGY METHOD 06/04/2024 11:18 AM EDT [facility] RBC 3.80 3.80 - 4.80 M/mcL LAB HEMETOLOGY METHOD 06/04/2024 11:18 AM EDT [facility] Hemoglobin 11.2(L) 11.5 - 16.0 g/dL LAB HEMETOLOGY METHOD 06/04/2024 11:18 AM EDT [facility] Hematocrit 33.6(L) 35.0 - 47.0 % LAB HEMETOLOGY METHOD 06/04/2024 11:18 AM EDT [facility] MCV 88.2 79.0 - 98.0 FL LAB HEMETOLOGY METHOD 06/04/2024 11:18 AM EDT [facility] MCH 29.4 27.0 - 32.0 pcg LAB HEMETOLOGY METHOD 06/04/2024 11:18 AM EDT [facility] MCHC 33.3 32.0 - 37.0 g/dL LAB HEMETOLOGY METHOD 06/04/2024 11:18 AM EDT [facility] RDW 13.2 11.0 - 15.0 % LAB HEMETOLOGY METHOD 06/04/2024 11:18 AM [facility] Platelets 157 130 - 400 K/mcL LAB HEMETOLOGY METHOD 06/04/2024 11:18 AM EDT [facility] MPV 10.1 7.0 - 11.0 FL LAB HEMETOLOGY METHOD 06/04/2024 11:18 AM EDT [facility] NRBC 0.0 <1.0 % LAB HEMETOLOGY METHOD 06/04/2024 11:18 AM [facility] NRBC Absolute 0.00 <0.10 K/mcL LAB HEMETOLOGY METHOD 06/04/2024 11:18 AM [facility] Blood Venous blood specimen / Unknown Venipuncture / Unknown 06/04/2024 5:10 AM EDT 06/04/2024 10:02 AM EDT us Gregory Alicea MD LAB BLOOD ORDERABLES Final R esult [facility] [address] [place] [address], documented in this encounter Visit Diagnoses Diagnosis Hypothyroidism, unspecified Type 2 diabetes mellitus without complications (CMS/HCC V24, CMS/[facility] V28) documented in this encounter Care Teams Washing Machine Operator Relationship Specialty Start Date End Date Saman Campbell NP [address] [place] [address] [address] [place], [place] PCP - General Nurse Practitioner 07/04/24 documented as of this encounter
--- OUTSIDE RECORDS SUMMARY | 2024-11-26 17:29 | XMS_ITS | Encounter Summary ---
Author Organization [employer] Address [address] [place] [address] Care Team Providers Care Dairy Quality Assurance Officer Name Role Phone Saman Campbell NP Primary Care Provider [phone] Encounter Details Date Type Department Care Team (Latest Contact Info) Description 05/21/2024 Lab Requisition [facility] - Main Lab [address] [facility] [place] [address] Gregory Alicea MD [address] [place] [address] Hypothyroidism, unspecified; Type 2 diabetes mellitus without [...] Procedure Name Priority Date/Time Associated Diagnosis Comments CBC WITH AUTO DIFFERENTIAL Routine 05/21/2024 11:01 AM EDT Hypothyroidism, unspecified Type 2 diabetes mellitus without complications (CMS/HCC) CBC AND DIFFERENTIAL Routine 05/21/2024 11:01 AM EDT Hypothyroidism, unspecified Type 2 diabetes mellitus without complications (CMS/HCC) HEMOGLOBIN A1C Routine 05/21/2024 11:01 AM EDT Hypothyroidism, unspecified Type 2 diabetes mellitus without complications (CMS/HCC) VALPROIC ACID LEVEL, TOTAL Routine 05/21/2024 11:01 AM EDT Hypothyroidism, unspecified Type 2 diabetes mellitus without complications (CMS/HCC) BASIC METABOLIC PANEL Routine 05/21/2024 11:01 AM EDT Hypothyroidism, unspecified Type 2 diabetes mellitus without complications (CMS/HCC) documented in this encounter Results * (ABNORMAL) CBC auto differential (05/21/2024 11:01 AM EDT) [facility] WBC 4.3(L) 4.8 - 10.8 K/mcL LAB HEMETOLOGY METHOD 05/21/2024 11:42 AM EDT [facility] RBC 4.30 3.80 - 4.80 M/[facility] LAB HEMETOLOGY METHOD 05/21/2024 11:[address] [facility] Hemoglobin 12.8 11.5 - 16.0 g/dL LAB HEMETOLOGY METHOD 05/21/2024 11:[address] [facility] Hematocrit 38.4 35.0 - 47.0 % LAB HEMETOLOGY METHOD 05/21/2024 11:[address] [facility] MCV 89.3 79.0 - 98.0 FL LAB HEMETOLOGY METHOD 05/21/2024 11:[address] [facility] MCH 29.8 27.0 - 32.0 pcg LAB HEMETOLOGY METHOD 05/21/2024 11:[address] [facility] MCHC 33.3 32.0 - 37.0 g/dL LAB HEMETOLOGY METHOD 05/21/2024 11:[address] [facility] RDW 13.6 11.0 - 15.0 % LAB HEMETOLOGY METHOD 05/21/2024 11:[address] [facility] Platelets 175 130 - 400 K/mcL LAB HEMETOLOGY METHOD 05/21/2024 11:[address] [facility] MPV 10.0 7.0 - 11.0 FL LAB HEMETOLOGY METHOD 05/21/2024 11:[address] [facility] NRBC 0.0 <1.0 % LAB HEMETOLOGY METHOD 05/21/2024 11:[address] [facility] NRBC Absolute 0.00 <0.10 K/mcL LAB HEMETOLOGY METHOD 05/21/2024 11:[address] [facility] Neutrophils Relative 58.3 % LAB HEMETOLOGY METHOD 05/21/2024 11:[address] [facility] Lymphocytes Relative 30.6 % LAB HEMETOLOGY METHOD 05/21/2024 11:[address] [facility] Monocytes Relative 8.8 % LAB HEMETOLOGY METHOD 05/21/2024 11:42 AM EDT [facility] Eosinophils Relative 0.9 % LAB HEMETOLOGY METHOD 05/21/2024 11:42 AM EDT [facility] Basophils Relative 0.5 % LAB HEMETOLOGY METHOD 05/21/2024 11:42 AM EDT [facility] Immature Granulocytes Relative 0.9 % LAB HEMETOLOGY METHOD 05/21/2024 11:42 AM EDT [facility] Neutrophils Absolute 2.53 1.50 - 7.00 K/mcL LAB HEMETOLOGY METHOD 05/21/2024 11:42 AM EDT [facility] Lymphocytes Absolute 1.33 1.00 - 5.00 K/mcL LAB HEMETOLOGY METHOD 05/21/2024 11:42 AM EDT [facility] Monocytes Absolute 0.38 0.20 - 1.00 K/mcL LAB HEMETOLOGY METHOD 05/21/2024 11:42 AM EDT [facility] Eosinophils Absolute 0.04 0.00 - 0.50 K/mcL LAB [facility] Basophils Absolute 0.02 0.00 - 0.20 K/mcL LAB HEMETOLOGY METHOD 05/21/2024 11:42 AM EDT [facility] Immature Granulocytes Absolute 0.04(H) 0.00 - 0.03 K/mcL LAB HEMETOLOGY METHOD 05/21/2024 11:[address] [facility] Blood Venous blood specimen / Unknown Venipuncture / Unknown 05/21/2024 11:01 AM EDT 05/21/2024 11:33 AM EDT us Gregory Alicea MD LAB BLOOD ORDERABLES Final R esult [facility] [address] [place] [address], [place] [phone] * Valproic acid level, total (05/21/2024 11:01 AM EDT) [facility] Valproic Acid, Total 55 50 - 100 mcg/mL LAB CHEMISTRY METHOD 05/21/2024 12:05 PM EDT [facility] Blood Venous blood specimen / Unknown Venipuncture / Unknown 05/21/2024 11:01 AM EDT 05/21/2024 11:33 AM EDT Gregory Alicea MD LAB BLOOD ORDERABLES Final R esult [facility] [address] [place] [address], [place] [phone] * (ABNORMAL) Hemoglobin A1c (05/21/2024 11:01 AM EDT) [facility] Hemoglobin A1C 7.9(H) <6.5 % LAB CHEMISTRY METHOD 05/21/2024 2:27 PM EDT [facility] Mean Bld Glu Estim. 180 mg/dL LAB CHEMISTRY METHOD 05/21/2024 2:27 PM EDT [facility] Blood Venous blood specimen / Unknown Venipuncture / Unknown 05/21/2024 11:01 AM EDT 05/21/2024 11:33 AM EDT Gregory Alicea MD LAB BLOOD ORDERABLES Final R esult [facility] [address] [place] [address], [place] [phone] * (ABNORMAL) Basic metabolic panel (05/21/2024 11:01 AM EDT) [facility] Sodium 133 133 - 145 mmol/L LAB CHEMISTRY METHOD 05/21/2024 12:05 PM EDT [facility] Potassium 4.2 3.5 - 5.5 mmol/L LAB CHEMISTRY METHOD 05/21/2024 12:[address] [facility] Chloride 97 96 - 110 mmol/L LAB CHEMISTRY METHOD 05/21/2024 12:[address] [facility] CO2 31 21 - 32 mmol/L LAB CHEMISTRY METHOD 05/21/2024 12:[address] [facility] Anion Gap 5 3 - 11 LAB CHEMISTRY METHOD 05/21/2024 12:[address] [facility] Glucose 161(H) 70 - 100 mg/dL LAB CHEMISTRY METHOD 05/21/2024 12:[address] [facility] BUN 16 5 - 25 mg/dL LAB CHEMISTRY METHOD 05/21/2024 12:[address] [facility] Creatinine 0.62 0.50 - 1.10 mg/dL LAB CHEMISTRY METHOD 05/21/2024 12:[address] [facility] eGFR 104 >=60 mL/min/1. 73m2 LAB CHEMISTRY METHOD 05/21/2024 12:[address] [facility] Comment:Calculation based on the Chronic Kidney Disease Epidemiology Collaboration (CKD-EPI) equation refit without adjustment for race. BUN/Creatinine Ratio 25.8 LAB CHEMISTRY METHOD 05/21/2024 12:[address] [facility] Calcium 9.8 8.5 - 10.5 mg/dL LAB CHEMISTRY METHOD 05/21/2024 12:[address] [facility] Blood Venous blood specimen / Unknown Venipuncture / Unknown 05/21/2024 11:01 AM EDT 05/21/2024 11:33 AM EDT us Gregory Alicea MD LAB BLOOD ORDERABLES Final R esult [facility] [address] [place], [place] [address] [phone] documented in this encounter Visit Diagnoses Diagnosis Hypothyroidism, unspecified Type 2 diabetes mellitus without complications (CMS/HCC V24, CMS/HCC V28) documented in this encounter Care Teams Dairy Quality Assurance Officer Relationship Specialty Start Date End Date Saman Campbell NP [address] [place] [address] [address] [place], [place] PCP - General Nurse Practitioner 07/04/24 documented as of this encounter
--- OUTSIDE RECORDS SUMMARY | 2024-11-26 17:29 | XMS_ITS | Encounter Summary ---
Author Organization [facility] Address [address] [place] [address] Care Team Providers Care Girls Swimming Coach Name Role Phone Saman Campbell NP Primary Care Provider [phone] Encounter Details Date Type Department Care Team (Late st Contact Info) Description 04/25/2024 Lab Requisition [facility] - Main Lab 299 [facility] [place] [address] Edda Esparza MD [address] [place] [id number] Other intermediate frame tender (current) drug therapy Social History Tobacco Use Types Packs/Day Years [...] Procedure Name Priority Date/Time Associated Diagnosis Comments VALPROIC ACID LEVEL, TOTAL Routine 04/25/2024 5:20 AM EST Other care home (current) drug therapy documented in this encounter Results * Valproic acid level, total (04/25/2024 5:20 AM EST) Valproic Acid, Total 72 50 - 100 mcg/mL LAB CHEMISTRY METHOD 04/25/2024 11:42 AM EST [facility] Blood Venous blood specimen / Unknown Venipuncture / Unknown 04/25/2024 5:20 AM EST 04/25/2024 10:44 AM EST us Edda Esparza MD LAB BLOOD ORDERABLES Final Resu lt [facility] [address] [place] [address], documented in this encounter Visit Diagnoses Diagnosis Other care home (current) drug therapy documented in this encounter Care Teams Girls Swimming Coach Relationship Specialty Start Date End Date Saman Campbell NP [address] [place] [address] [address] [place], [place] PCP - General Nurse Practitioner 07/04/24 documented as of this encounter
--- OUTSIDE RECORDS SUMMARY | 2024-11-26 17:29 | XMS_ITS | Encounter Summary ---
Author Organization [facility] Address [address] [place] [address] Care Team Providers Care Veterinary Manager Name Role Phone Saman Campbell NP Primary Care Provider [phone] Encounter Details Date Type Department Care Team (Late st Contact Info) Description 06/06/2024 Lab Requisition [facility] - Main Lab [address] [place] [address] Gregory Alicea MD [address] [place] [address] Hypothyroidism, unspecified; Hyperlipidemia, unspecified Social History Tobacco Use Types [...] Procedure Name Priority Date/Time Associated Diagnosis Comments SODIUM Routine 06/07/2024 8:23 AM EDT Hypothyroidism, unspecified Hyperlipidemia, unspecified documented in this encounter Results * (ABNORMAL) Sodium (06/07/2024 8:23 AM EDT) Sodium 129(L) 133 - 145 mmol/L LAB CHEMISTRY METHOD 06/07/2024 11:32 AM EDT [facility] Blood Venous blood specimen / Unknown Venipuncture / Unknown 06/07/2024 8:23 AM EDT 06/07/2024 10:39 AM EDT us Gregory Alicea MD LAB BLOOD ORDERABLES Final R esult [facility] [address] [place] [address], documented in this encounter Visit Diagnoses Diagnosis Hypothyroidism, unspecified Hyperlipidemia, unspecified documented in this encounter Care Teams Veterinary Manager Relationship Specialty Start Date End Date Saman Campbell NP [address] [place] [address] [address] [place], [place] PCP - General Nurse Practitioner 07/04/24 documented as of this encounter
--- OUTSIDE RECORDS SUMMARY | 2024-11-26 17:29 | XMS_ITS | Encounter Summary ---
Author Organization [facility] Address [address] [place] [address] Care Team Providers Care Orthodontic Assistant Name Role Phone Saman Campbell NP Primary Care Provider [phone] Encounter Details Date Type Department Care Team (Late st Contact Info) Description 03/27/2024 Lab Requisition [facility] Lab [address] [facility] [place] [address] Edda Esparza MD [address] [place] [id number] Cerebral palsy, unspecified (CMS/HCC V24, CMS/HCC V28); Elevated white blood cell count, unspecified Social History Tobacco Use Types Packs/Day [...] Diagnosis Comments CBC WITH AUTO DIFFERENTIAL Routine 03/27/2024 6:02 AM EST Cerebral palsy, unspecified (CMS/HCC) Elevated white blood cell count, unspecified CBC AND DIFFERENTIAL Routine 03/27/2024 6:02 AM EST Cerebral palsy, unspecified (CMS/HCC) Elevated white blood cell count, unspecified BASIC METABOLIC PANEL Routine 03/27/2024 6:02 AM EST Cerebral palsy, unspecified (CMS/HCC) Elevated white blood cell count, unspecified documented in this encounter Results * (ABNORMAL) CBC auto differential (03/27/2024 6:02 AM EST) WBC 4.3(L) 4.8 - 10.8 K/mcL LAB HEMETOLOGY METHOD 03/27/2024 11:[address] [facility] RBC 4.10 3.80 - 4.80 M/mcL LAB HEMETOLOGY METHOD 03/27/2024 11:[address] [facility] Hemoglobin 12.0 11.5 - 16.0 g/dL LAB HEMETOLOGY METHOD 03/27/2024 11:[address] [facility] Hematocrit 37.2 35.0 - 47.0 % LAB HEMETOLOGY METHOD 03/27/2024 11:[address] [facility] MCV 91.0 79.0 - 98.0 FL LAB HEMETOLOGY METHOD 03/27/2024 11:[address] [facility] MCH 29.3 27.0 - 32.0 pcg LAB HEMETOLOGY METHOD 03/27/2024 11:[address] [facility] MCHC 32.3 32.0 - 37.0 g/dL LAB HEMETOLOGY METHOD 03/27/2024 11:[address] [facility] RDW 13.3 11.0 - 15.0 % LAB HEMETOLOGY METHOD 03/27/2024 11:[address] [facility] Platelets 155 130 - 400 K/mcL LAB HEMETOLOGY METHOD 03/27/2024 11:[address] [facility] MPV 11.0 7.0 - 11.0 FL LAB HEMETOLOGY METHOD 03/27/2024 11:[address] [facility] NRBC 0.0 <1.0 % LAB HEMETOLOGY METHOD 03/27/2024 11:[address] [facility] NRBC Absolute 0.00 <0.10 K/mcL LAB HEMETOLOGY METHOD 03/27/2024 11:[address] [facility] Neutrophils Relative 41.0 % LAB HEMETOLOGY METHOD 03/27/2024 11:[address] [facility] Lymphocytes Relative 49.8 % LAB HEMETOLOGY METHOD 03/27/2024 11:[address] [facility] Monocytes Relative 6.8 % LAB HEMETOLOGY METHOD 03/27/2024 11:[address] [facility] Eosinophils Relative 1.4 % LAB HEMETOLOGY METHOD 03/27/2024 11:[address] [facility] Basophils Relative 0.5 % LAB HEMETOLOGY METHOD 03/27/2024 11:29 AM EST [facility] Immature Granulocytes Relative 0.5 % LAB HEMETOLOGY METHOD 03/27/2024 11:[address] [facility] Neutrophils Absolute 1.75 1.50 - 7.00 K/[facility] LAB HEMETOLOGY METHOD 03/27/2024 11:[address] [facility] Lymphocytes Absolute 2.12 1.00 - 5.00 K/mcL LAB HEMETOLOGY METHOD 03/27/2024 11:[address] [facility] Monocytes Absolute 0.29 0.20 - 1.00 K/[facility] LAB HEMETOLOGY METHOD 03/27/2024 11:[address] [facility] Eosinophils Absolute 0.06 0.00 - 0.50 K/[facility] LAB HEMETOLOGY METHOD 03/27/2024 11:[address] [facility] Basophils Absolute 0.02 0.00 - 0.20 K/mcL LAB HEMETOLOGY METHOD 03/27/2024 11:[address] [facility] Immature Granulocytes Absolute 0.02 0.00 - 0.03 K/mcL LAB HEMETOLOGY METHOD 03/27/2024 11:[address] [facility] Blood Venous blood specimen / Unknown Venipuncture / Unknown 03/27/2024 6:02 AM EST 03/27/2024 10:19 AM EST us Edda Esparza MD LAB BLOOD ORDERABLES Final Resu lt [facility] [address] [place] [address], * (ABNORMAL) Basic metabolic panel (03/27/2024 6:02 AM EST) Sodium 137 133 - 145 mmol/L LAB CHEMISTRY METHOD 03/27/2024 11:49 AM EST [facility] Potassium 3.9 3.5 - 5.5 mmol/L LAB CHEMISTRY METHOD 03/27/2024 11:[address] [facility] Chloride 103 96 - 110 mmol/L LAB CHEMISTRY METHOD 03/27/2024 11:[address] [facility] CO2 30 21 - 32 mmol/L LAB CHEMISTRY METHOD 03/27/2024 11:[address] [facility] Anion Gap 4 3 - 11 LAB CHEMISTRY METHOD 03/27/2024 11:[address] [facility] Glucose 142(H) 70 - 100 mg/dL LAB CHEMISTRY METHOD 03/27/2024 11:[address] [facility] BUN 19 5 - 25 mg/dL LAB CHEMISTRY METHOD 03/27/2024 11:[address] [facility] Creatinine 0.54 0.50 - 1.10 mg/dL LAB CHEMISTRY METHOD 03/27/2024 11:[address] [facility] eGFR 108 >=60 mL/min/1. 73m2 LAB CHEMISTRY METHOD 03/27/2024 11:[address] [facility] Comment:Calculation based on the Chronic Kidney Disease Epidemiology Collaboration (CKD-EPI) equation refit without adjustment for race. BUN/Creatinine Ratio 35.2 LAB CHEMISTRY METHOD 03/27/2024 11:[address] [facility] Calcium 9.1 8.5 - 10.5 mg/dL LAB CHEMISTRY METHOD 03/27/2024 11:[address] [facility] Blood Venous blood specimen / Unknown Venipuncture / Unknown 03/27/2024 6:02 AM EST 03/27/2024 10:19 AM EST us Edda Esparza MD LAB BLOOD ORDERABLES Final Resu lt [facility] [address] [place] [address], documented in this encounter Visit Diagnoses Diagnosis Cerebral palsy, unspecified (CMS/HCC V24, CMS/HCC V28) Elevated white blood cell count, unspecified documented in this encounter Care Teams Orthodontic Assistant Relationship Specialty Start Date End Date Saman Campbell NP [address] [place] [address] [address] [place], [place] PCP - General Nurse Practitioner 07/04/24 documented as of this encounter
--- OUTSIDE RECORDS SUMMARY | 2024-11-26 17:29 | XMS_ITS | Clinical Summary ---
Author Organization 175 [facility] Address [address] [place] [address] Phone Care Team Providers Care Silviculture Professor Name Role Phone Saman Campbell NP Primary Care Provider [phone] Allergies Active Allergy Reactions Criticality Noted Date Comments Codeine 02/29/2024 Hydrocodone-Acetaminoph en Nausea And Vomiting Medium 12/27/2016 Pt body doesn't metabolize narcotics. Hydromorphone Nausea And Vomiting Medium 12/27/2016 Morphine Other Medium 12/27/2016 Pt will pass out. Medications fluticasone propionate (FLONASE) 50 mcg/actuation nasal spray 2 Sprays by Each Nare route daily. Active albuterol HFA (PROAIR HFA ; PROVENTIL HFA ; VENTOLIN HFA) 90 mcg/actuation inhaler Inhale 2 Puffs into the lungs every 4 hours as needed. Active sertraline (ZOLOFT) 100 mg tablet Take 100 mg by mouth daily. Active dexlansoprazole (DEXILANT) [address] capsule Take by mouth. A ctive divalproex (DEPAKOTE) [address] tablet 1 tablet (500 mg total) 3 (three) times a day. Active solifenacin (VESICARE) 10 mg tablet Take 5 mg by mouth daily. Active levothyroxine sodium (TIROSINT) 75 mcg capsule Take 75 mcg by mouth. Daily with breakfast Active insulin lispro (HumaLOG U-100 Insulin) 100 unit/mL injection pen CARTRIDGE 3 Units 3 (three) times a day before meals. Active insulin glargine (Lantus U-100 Insulin) 100 unit/mL injection 30 Units at bedtime. Active baclofen (LIORESAL) 10 mg tablet Take 1 tablet (10 mg total) by mouth 3 (three) times a day. Active DOCUSATE SODIUM ORAL Take by mouth. Activ e sertraline (ZOLOFT) 100 mg tablet Take 1 tablet (100 mg total) by mouth 1 (one) time each day. 0 Active levothyroxine (SYNTHROID, LEVOTHROID) 75 mcg tablet Take 1 tablet (75 mcg total) by mouth 1 (one) time each day before breakfast. Active fluticasone propionate (Flonase Allergy Relief) 50 mcg/actuation nasal spray Administer 2 sprays into each nostril 1 (one) time each day. 0 Active divalproex (Depakote) [address] tablet Take 1 tablet (500 mg total) by mouth 3 (three) times a day. 0 Active baclofen (LIORESAL) 10 mg tablet Take 2 tablets (20 mg total) by mouth at bedtime. 0 Active SUMAtriptan (IMITREX) 50 mg tablet Take 1 tablet (50 mg total) by mouth 1 (one) time if needed. Active rosuvastatin (CRESTOR) 10 mg tablet Take 1 tablet (10 mg total) by mouth 1 (one) time each day. Active pantoprazole (PROTONIX) 40 mg EC tablet Take 1 tablet (40 mg total) by mouth at bedtime. Active Myrbetriq 50 mg tablet extended release 24 hr 24 hr tablet Take 1 tablet (50 mg total) by mouth at bedtime. Active cetirizine (ZyrTEC) 10 mg tablet Take 1 tablet (10 mg total) by mouth 1 (one) time each day. Active Active Problems Problem Noted Date Diagnosed Date Blind in both eyes 12/18/2023 Cerebral palsy ([facility] V24, [facility] V28) 2023 GERD (gastroesophageal reflux disease) 4 Encounters Date Type Department Care Team Description 10/18/2024 Lab Requisition [facility] - Main Lab [address] [facility] [place] [address] Gregory Alicea MD Type 2 diabetes mellitus without complications ([facility] V24, [facility] V28); Hyperlipidemia, unspecified; Hypothyroidism, unspecified 10/18/2024 Lab Requisition [facility] - Main Lab [address] [facility] [place] [address] Gregory Alicea MD Type 2 diabetes mellitus without complications ([facility] V24, [facility] V28); Hyperlipidemia, unspecified from Last 3 Months Immunizations Name Administration Dates Next Due COVID-19 (Moderna/Spikevax) 12yo and older 12/20 Medical History Medical History Date Comments Diabetes mellitus ([facility] V24, [facility] V28) Asthma Blind Anxiety Cerebral palsy ([facility] V24, [facility] V28) Glaucoma Social History Tobacco Use Types Packs/Day Years Used Date Smoking Tobacco: Never Smokeless Tobacco: Never Tobacco Cessation:Counseling Given: Not Answered Comments No Sex and Gender Information Value Date Recorded Sex Assigned at Female 04/04/2024 1:16 PM EST Legal Sex Female 1:07 AM EST Gender Identity Female 04/04/2024 1:16 PM EST Sexual Orientation Choose not to disclose 2024 1:16 PM EST Obstetrics History Para Term AB IAB SAB Ectopic Multiple Livin g Live Births 0 Last Filed Vital Signs Vital Sign Reading Time Taken Comments Blood Pressure 128/87 03/05/2024 3:09 PM EST Pulse 98 03/05/2024 3:09 PM EST Temperature 36.6 C (97.9 F) 03/05/2024 3:09 PM EST Respiratory Rate 16 03/05/2024 3:09 PM EST Oxygen Saturation 95% 03/05/2024 3:09 PM EST Inhaled Oxygen Concentration - - Weight 62.1 kg (137 lb) 07/04/2024 2:08 PM EDT Height 152.4 cm (5') 07/04/2024 2:08 PM EDT Body Mass Index 26.76 07/04/2024 2:08 PM EDT Plan of Treatment Health Maintenance Due Date Last Done Comments Diabetes: Annual Foot Exam 1976 Diabetes: Annual Retina Eye Exam 1976 Hepatitis B Vaccines (1 of 3 - 19+ 3-dose series) 1985 Pneumococcal Vaccine: 50+ Years (1 of 2 - PCV) 1985 Cervical Cancer Screening: Pap Smear 11/12/1987 Zoster Vaccines (1 of 2) 2016 HIV Screening 04/11/2023 Hepatitis C Screening 04/11/2023 Medicare Annual Wellness Visit 04/11/2023 Social Influencers of Health Screening 04/11/2023 Diabetes: Annual Urine Albumin-Creatinine Ratio (uACR) 02/19/2024 Depression Screening 03/13/2024 COVID-19 Vaccine ( season) 2024 12/20/2021, 06/10/2020, 05/20/2020 Influenza Vaccine (#1) 2024 Diabetes: Blood Sugar Control Test (HGBA1C) 04/20/2025 10/18/2024, 05/21/2024, 03/22/2024 Diabetes: Annual GFR (Glomerular Filtration Rate) 10/18/2025 10/18/2024, 06/04/2024, 05/28/2024, Additional history exists Breast Cancer Screening 07/04/2026 07/04/2024 Colorectal Cancer Screening: Colonoscopy 02/08/2027 02/08/2017 Cholesterol Screening (Lipid Panel) 10/18/2029 10/18/2024, 02/19/2024 DTaP,Tdap,and Td Vaccines (2 - Td or Tdap) 01/07/2034 01/08/2024 HIB Vaccines Aged Out No longer eligi ble based on patient's age to complete this topic HPV Vaccines Aged Out No longer eligi ble based on patient's age to complete this topic Hepatitis A Vaccines Aged Out No long er eligible based on patient's age to complete this topic IPV Vaccines Aged Out No longer eligi ble based on patient's age to complete this topic MMR Vaccines Aged Out No longer eligi ble based on patient's age to complete this topic Meningococcal ACWY Vaccine Aged Out N o longer eligible based on patient's age to complete this topic Meningococcal B Vaccine Aged Out No l onger eligible based on patient's age to complete this topic RSV Immunization Patients Under 20 months Aged Out No longer eligible based on patient's age to complete this topic Varicella Vaccines Aged Out No longer eligible based on patient's age to complete this topic Procedures Procedure Name Priority Date/Time Associated Diagnosis Comments LIPID PANEL WITH REFLEX TO DIRECT LDL Routine 10/18/2024 5:44 AM EDT Type 2 diabetes mellitus without complications (CMS/HCC V24, CMS/HCC V28) Hyperlipidemia, unspecified THYROID STIMULATING HORMONE Routine 10/18/2024 5:44 AM EDT Type 2 diabetes mellitus without complications (CMS/HCC V24, CMS/HCC V28) Hyperlipidemia, unspecified VITAMIN B12 Routine 10/18/2024 5:44 AM EDT Type 2 diabetes mellitus without complications (CMS/HCC V24, CMS/HCC V28) Hyperlipidemia, unspecified MAGNESIUM Routine 10/18/2024 5:44 AM EDT Type 2 diabetes mellitus without complications (CMS/HCC V24, CMS/HCC V28) Hyperlipidemia, unspecified HEMOGLOBIN A1C Routine 10/18/2024 5:44 AM EDT Type 2 diabetes mellitus without complications (CMS/HCC V24, CMS/HCC V28) Hyperlipidemia, unspecified BASIC METABOLIC PANEL Routine 10/18/2024 5:44 AM EDT Type 2 diabetes mellitus without complications (CMS/HCC V24, CMS/HCC V28) Hyperlipidemia, unspecified COMPLETE BLOOD COUNT Routine 10/18/2024 5:44 AM EDT Type 2 diabetes mellitus without complications (CMS/HCC V24, CMS/HCC V28) Hyperlipidemia, unspecified MG MAMMO DIGITAL SCREENING W WATSON BILAT Routine 07/04/2024 2:14 PM EDT Encounter for screening mammogram for malignant neoplasm of breast HM COLONOSCOPY Routine 02/08/2017 from Last 3 Months or Most Recently Relevant to Health Maintenance Results * Lipid panel with reflex to direct LDL (10/18/2024 5:44 AM EDT) [facility] Cholesterol 99 0 - 200 mg/dL LAB CHEMISTRY METHOD 10/18/2024 10:37 AM EDT [facility] Triglycerides 93 0 - 150 mg/dL LAB CHEMISTRY METHOD 10/18/2024 10:37 AM EDT [facility] HDL 50 >=40 mg/dL LAB CHEMISTRY METHOD 10/18/2024 10:37 AM EDT [facility] LDL Calculated 30 0 - 100 mg/dL LAB CHEMISTRY METHOD 10/18/2024 10:37 AM EDT [facility] Comment:Estimated LDL Calcul ated using equation: Total cholesterol - HDL cholesterol - (Triglycerides/5) VLDL Cholesterol Reji 18.6 mg/dL LAB CHEMISTRY METHOD 10/18/2024 10:37 AM EDT [facility] Non HDL Chol. (LDL+VLDL) 49 <145 mg/dL LAB CHE[facility]STRY METHOD [facility] Chol/HDL Ratio 2.0 0.0 - 4.4 LAB CHEMISTRY METHOD 10/18/2024 10:37 AM T [facility] Blood Venous blood specimen / Unknown Venipuncture / Unknown 10/18/2024 5:44 AM EDT 10/18/2024 8:27 AM EDT us Gregory Alicea MD LAB BLOOD ORDERABLES Final R esult [facility] [address] [place] [address], * (ABNORMAL) Complete blood count (10/18/2024 5:44 AM EDT) WBC 4.7(L) 4.8 - 10.8 K/mcL LAB HEMETOLOGY METHOD 10/18/2024 9:47 AM EDT [facility] RBC 3.80 3.80 - 4.80 M/mcL LAB HEMETOLOGY METHOD 10/18/2024 9:47 AM EDT [facility] Hemoglobin 11.2(L) 11.5 - 16.0 g/dL LAB HEMETOLOGY METHOD 10/18/2024 9:47 AM EDT [facility] Hematocrit 33.6(L) 35.0 - 47.0 % LAB HEMETOLOGY METHOD 10/18/2024 9:47 AM EDT [facility] MCV 89.4 79.0 - 98.0 FL LAB HEMETOLOGY METHOD 10/18/2024 9:47 AM EDT [facility] MCH 29.8 27.0 - 32.0 pcg LAB HEMETOLOGY METHOD 10/18/2024 9:47 AM EDT [facility] MCHC 33.3 32.0 - 37.0 g/dL LAB HEMETOLOGY METHOD 10/18[facility]2024 [facility] RDW 13.2 11.0 - 15.0 % LAB HEMETOLOGY METHOD 10/18/2024 9:47 AM EDT [facility] Platelets 188 130 - 400 K/mcL LAB HEMETOLOGY METHOD 10/18/2024 9:47 AM EDT [facility] MPV 9.9 7.0 - 11.0 FL LAB HEMETOLOGY METHOD 10/18/2024 9:47 AM EDT [facility] NRBC 0.0 <1.0 % LAB HEMETOLOGY METHOD 10/18/2024 9:47 AM EDT [facility] NRBC Absolute 0.00 <0.10 K/mcL LAB HEMETOLOGY METHOD 10/18/2024 9:47 AM EDT [facility] Blood Venous blood specimen / Unknown Venipuncture / Unknown 10/18/2024 5:44 AM EDT 10/18/2024 8:27 AM EDT us Gregory Alicea MD LAB BLOOD ORDERABLES Final R esult [facility] [address] [place] [address], * Thyroid stimulating hormone (10/18/2024 5:44 AM EDT) TSH 1.86 0.40 - 4.00 mcIU/mL LAB CHEMISTRY METHOD 10/18/2024 11:50 AM EDT [facility] Blood Venous blood specimen / Unknown Venipuncture / Unknown 10/18/2024 5:44 AM EDT 10/18/2024 8:27 AM EDT Gregory Alicea MD LAB BLOOD ORDERABLES Final R esult [facility] [address] [place] [address], * Magnesium (10/18/2024 5:44 AM EDT) Magnesium 1.9 1.9 - 2.6 mg/dL LAB CHEMISTRY METHOD 10/18/2024 10:07 AM EDT [facility] Blood Venous blood specimen / Unknown Venipuncture / Unknown 10/18/2024 5:44 AM EDT 10/18/2024 8:27 AM EDT Gregory Alicea MD LAB BLOOD ORDERABLES Final R esult [facility] [address] [place] [address], [place] [phone] * (ABNORMAL) Hemoglobin A1c (10/18/2024 5:44 AM EDT) Hemoglobin A1C 7.0(H) <6.5 % LAB CHEMISTRY METHOD 10/18/2024 2:08 PM EDT [facility] Mean Bld Glu Estim. 154 mg/dL LAB CHEMISTRY METHOD 10/18/2024 2:08 PM EDT [facility] Blood Venous blood specimen / Unknown Venipuncture / Unknown 10/18/2024 5:44 AM EDT 10/18/2024 8:27 AM EDT Gregory Alicea MD LAB BLOOD ORDERABLES Final R esult Performing Organization Address [facility]/ZIP Co de Phone Number [facility] [address] [place] [address], [place] [phone] * (ABNORMAL) Vitamin B12 (10/18/2024 5:44 AM EDT) [facility] Vitamin B-12 967(H) 250 - 900 pcg/mL LAB CHEMISTRY METHOD 10/18/2024 10:37 AM EDT [facility] Blood Venous blood specimen / Unknown Venipuncture / Unknown 10/18/2024 5:44 AM EDT 10/18/2024 8:27 AM EDT Gregory Alicea MD LAB BLOOD ORDERABLES Final R esult Performing Organization Address City/[facility]/ZIP Co de Phone Number [facility] [address] [place] [address], [place] [phone] * (ABNORMAL) Basic metabolic panel (10/18/2024 5:44 AM EDT) [facility] Sodium 133 133 - 145 mmol/L LAB CHEMISTRY METHOD 10/18/2024 10:07 AM EDT [facility] Potassium 4.3 3.5 - 5.5 mmol/L LAB CHEMISTRY METHOD 10/18/2024 10:07 AM EDT [facility] Chloride 100 96 - 110 mmol/L LAB CHEMISTRY METHOD 10/18/2024 10:07 AM EDT [facility] CO2 29 21 - 32 mmol/L LAB CHEMISTRY METHOD 10/18/2024 10:07 AM EDT [facility] Anion Gap 4 3 - 11 LAB CHEMISTRY METHOD 10/18/2024 10:07 AM EDT [facility] Glucose 164(H) 70 - 100 mg/dL LAB CHEMISTRY METHOD 10/18/2024 10:07 AM EDT [facility] BUN 17 5 - 25 mg/dL LAB CHEMISTRY METHOD 10/18/2024 10:07 AM EDT [facility] Creatinine 0.53 0.50 - 1.10 mg/dL LAB CHEMISTRY METHOD 10/18/2024 10:07 AM EDT [facility] eGFR 108 >=60 mL/min/1. 73m2 LAB CHEMISTRY METHOD 10/18/2024 10:07 AM EDT [facility] Comment:Calculation based on the Chronic Kidney Disease Epidemiology Collaboration (CKD-EPI) equation refit without adjustment for race. BUN/Creatinine Ratio 32.1 LAB CHEMISTRY METHOD 10/18/2024 10:07 AM EDT [facility] Calcium 9.3 8.5 - 10.5 mg/dL LAB CHEMISTRY METHOD 10/18/2024 10:07 AM EDT [facility] Blood Venous blood specimen / Unknown Venipuncture / Unknown 10/18/2024 5:44 AM EDT 10/18/2024 8:27 AM EDT Gregory Alicea MD LAB BLOOD ORDERABLES Final R esult [facility] [address] [place] [address], * MG Mammo Digital Screening w Watson bilat (07/04/2024 2:14 PM EDT) Anatomical Region Laterality Modality Breast Bilateral Mammography 07/04/2024 4:45 PM EDT Impressions 07/04/2024 4:51 PM EDT No mammographic evidence of malignancy. No suspicious interval change. A negative mammogram in the presence of a clinically suspicious palpable abnormality does not preclude the possibility of malignancy or alter the indications for biopsy. ASSESSMENT: BI-RADS 1: NEGATIVE RECOMMENDATION(S): 1: Routine screening mammogram BILATERAL in 1 year. [facility] [address], [address] -------- FINAL REPORT -------- Dictated By: Cesar Levine Dictated Date: 07/04/2024 16:45 ET Assigned Physician: Cesar Levine Reviewed and Electronically Signed By: Cesar Levine Signed Date: 07/04/2024 16:51 ET Workstation ID: [id number] Transcribed By: Self Edit Transcribed Date: 07/04/2024 16:45 ET Narrative 07/04/2024 4:51 PM EDT EXAM: SCREENING MAMMOGRAPHY, BILATERAL HISTORY: SCREENING. No additional history. COMPARISON: 07/04/23, 05/11/22, 12/21/19 TECHNIQUE: Synthesized CC and MLO projections of each breast. Tomosynthesis of each breast in the CC and MLO projections. Technologist notes the patient is blind and was examined in a wheelchair. ADDITIONAL IMAGING: None Computer-aided detection was employed with the [employer] AI 3-D. TISSUE DENSITY: There are scattered areas of fibroglandular density. (BI-RADS category B) FINDINGS: RIGHT BREAST: No suspicious mass. No suspicious calcification. No distortion. No additional suspicious right breast findings LEFT BREAST: No suspicious mass. No suspicious calcification. No distortion. No additional suspicious left breast findings Procedure Note Cesar Levine MD - 07/04/2024 EXAM: SCREENING MAMMOGRAPHY, BILATERAL HISTORY: SCREENING. No additional history. COMPARISON: 07/04/23, 05/11/22, 12/21/19 TECHNIQUE: Synthesized CC and MLO projections of each breast.Tomosynthesis of each breast in the CC and MLO projections. Technologist notes the patient is blind and was examined in awheelchair. ADDITIONAL IMAGING: None Computer-aided detection was employed with the [employer] AI 3-D. TISSUE DENSITY: There are scattered areas of fibroglandular density.(BI-RADS category B) FINDINGS: RIGHT BREAST: No suspicious mass. No suspicious calcification. No distortion. Noadditional suspicious right breast findings LEFT BREAST: No suspicious mass. No suspicious calcification. No distortion. Noadditional suspicious left breast findings IMPRESSION: No mammographic evidence of malignancy. No suspicious interval change. A negative mammogram in the presence of a clinically suspicious palpableabnormality does not preclude the possibility of malignancy or alter theindications for biopsy. ASSESSMENT: BI-RADS 1: NEGATIVE RECOMMENDATION(S): 1: Routine screening mammogram BILATERAL in 1 year. [facility] [address] [place], [address] -------- FINAL REPORT -------- Dictated By: Cesar Levine Dictated Date: 07/04/2024 16:45 ET Assigned Physician: Cesar Levine Reviewed and Electronically Signed By: Cesar Levine Signed Date: 07/04/2024 16:51 ET Workstation ID: [id number] Transcribed By: Self Edit Transcribed Date: 07/04/2024 16:45 ET Saman Campbell RFID STRATEGIST IMG BI PROCEDURES Final Result * Colonoscopy (02/08/2017) Colonoscopy no interpretation , abstracted Anatomical Region Laterality Modality Other us Historical Provider HEALTH MAINTENANCE Final Result from Last 3 Months or Most Recently Relevant to Health Maintenance Insurance [employer] MEDICARE Member Subscriber Plan / Payer (Ef fective 2013-Present) Name:RENUKA ANSARI Relation to Subscriber:Self Name:Renuka Ansari Payer ID:[id number] Group ID:[id number] Type:Not on file Address: [place] [address] [address] [phone] MEDICAID - [place] Advance Directives Documents on File Type Date Recorded Patient Study Specialist Expl anation Advance Directives and Livin g Will 03/07/2024 1:05 PM PROXY Care Teams Silviculture Professor Relationship Specialty Start Date End Date Saman Campbell NP [address] [place] [address] [address] [place], [place] PCP - General Nurse Practitioner 07/04/24
--- OUTSIDE RECORDS SUMMARY | 2024-11-26 17:29 | XMS_ITS | Encounter Summary ---
Author Organization [facility] Address [address] [place] [address] Care Team Providers Care Supervisor Forming And Tempering Name Role Phone Saman Campbell NP Primary Care Provider [phone] Encounter Details Date Type Department Care Team (Latest Contact Info) Description 03/22/2024 Lab Requisition [facility] - Main Lab [address] [facility] [place] [address] Edda Esparza MD [address] [place] [id number] Type 2 diabetes mellitus without complications (CMS/HCC [...] Procedure Name Priority Date/Time Associated Diagnosis Comments HEMOGLOBIN A1C Routine 03/22/2024 4:53 AM EST Type 2 diabetes mellitus without complications (CMS/[facility]) documented in this encounter Results * (ABNORMAL) Hemoglobin A1c (03/22/2024 4:53 AM EST) Hemoglobin A1C 8.7(H) <6.5 % LAB CHEMISTRY METHOD 03/22/2024 2:01 PM EST [facility] Mean Bld Glu Estim. 203 mg/dL LAB CHEMISTRY METHOD 03/22/2024 2:01 PM EST [facility] Blood Venous blood specimen / Unknown Venipuncture / Unknown 03/22/2024 4:53 AM EST 03/22/2024 10:32 AM EST us Edda Esparza MD LAB BLOOD ORDERABLES Final Resu lt [facility] [address] [place] [address], documented in this encounter Visit Diagnoses Diagnosis Type 2 diabetes mellitus without complications (CMS/HCC V24, CMS/HCC V28) documented in this encounter Care Teams Supervisor Forming And Tempering Relationship Specialty Start Date End Date Saman Campbell NP [address] [place] [address] [address] [place], [place] PCP - General Nurse Practitioner 07/04/24 documented as of this encounter
--- OUTSIDE RECORDS SUMMARY | 2024-11-26 17:29 | XMS_ITS | Encounter Summary ---
Author Organization [facility] Address [address] [place] [address] Care Team Providers Care Car Washer Name Role Phone Saman Campbell NP Primary Care Provider [phone] Encounter Details Date Type Department Care Team (Latest Contact Info) Description 06/10/2024 Lab Requisition [facility] - Main Lab [address] [facility] [place] [address] Gregory Alicea MD [address] [place] [address] Hypothyroidism, unspecified; Type 2 diabetes mellitus without [...] as of this encounter Visit Diagnoses Diagnosis Hypothyroidism, unspecified Type 2 diabetes mellitus without complications (CMS/HCC V24, CMS/HCC V28) documented in this encounter Care Teams Car Washer Relationship Specialty Start Date End Date Saman Campbell NP [address] [place] [address] [address] [place], [place] PCP - General Nurse Practitioner 07/04/24 documented as of this encounter
== END 2024-11-26 14:11 | disposition home or self-care (01) ==
LOC: HO.HSMS 13:34
PROVIDERS: PCP Internal Medicine; Visit Provider Psychiatry & Neurology Neurology
DX: G43.719 Chronic migraine without aura, intractable, without status migrainosus (principal)
CPT/HCPCS: 64615

== ENCOUNTER → 2024-11-26 13:33 | Outpatient (BNVA) | payer OTHER, SELFPAY | PROVIDERS: PCP Internal Medicine; Visit Provider Psychiatry & Neurology Neurology | DX: G43.719 Chronic migraine without aura, intractable, without status migrainosus (principal) | CPT/HCPCS: 64615; 99211; J0585 ==

== ENCOUNTER 2025-02-25 14:56 | Outpatient (AMB) | payer OTHER, SELFPAY ==
--- OUTSIDE RECORDS SUMMARY | 2024-03-12 09:45 | XMS_ITS ---
Author Organization [facility] Address [address] [place] [address] Care Team Providers Care Shift Supervisor Name Role Phone Siddharth HUYNH, Percy Primary Care Provider Unavail Kevin Fajardo [phone] Encounters Encounter Location Date Provider Diagnosis [address] [address] 03/12/2024 Kevin Morrow Plan Of Treatment No Information Progress Notes * Chelsea ROSALESdevoneDOB: 7 (59 yo F)Acc No.[id number]:03/12/2024 Progress Note Patient: Ina MAIN Provider: Dylon Morrow D.P.M. :1965 A ge:58 Y S ex:Female Date:03/12/2024 Address:[address] [place], [place] Pcp:Percy Messina MD Subjective: * Chief Complaints: * * Medical History: Objective: * Vitals: Assessment: Plan: * Treatment: * Images: * The named appointment provid er may or may not be the originator of this progress note, and it is not deemed complete until electronically signed by the appointment provider. Sign off status: Pending * Provider: Dylon Morrow D.P.M. Date: Generated for Alo navarro/Ida/eTransmitting on: 04/28/2024 07:15 PM EST
--- OUTSIDE RECORDS SUMMARY | 2024-03-21 09:15 | XMS_ITS ---
Author Organization [facility] Address [address] [place] [address] Care Team Providers Care Flight Instructor Name Role Phone Siddharth HUYNH, Percy Primary Care Provider Unavail Kevin Fajardo [phone] Encounters Encounter Location Date Provider Diagnosis [address] [address] 03/21/2024 Kevin Morrow Plan Of Treatment No Information Progress Notes * Chelsea ANSARIdevoneDOB: 7 (59 yo F)Acc No.[id number]:03/21/2024 Progress Note Patient: Ina MAIN Provider: Dylon Morrow D.P.M. :1965 A ge:58 Y S ex:Female Date:03/21/2024 Address:[address] [place], [place] Pcp:Percy Messina MD Subjective: * Chief Complaints: * * Medical History: Objective: * Vitals: Assessment: Plan: * Treatment: * Images: * The named appointment provid er may or may not be the originator of this progress note, and it is not deemed complete until electronically signed by the appointment provider. Sign off status: Pending * Provider: Dylon Morrow D.P.M. Date: 0 03/21/2024 Generated for Alo navarro/Ida/eTransmitting on: 04/28/2024 07:16 PM EST
--- NOTE | 2025-02-25 14:52 | MHC.OFFVIS ---
Vital Signs 02/25/25 14:58 Height 5 ft Weight 154 lb BMI 30.1 BP 128/80 Blood Pressure Location Rt brachial Position Sitting Pulse 89 Pulse Source Pulse Oximeter Pulse Oximetry (%) 100 Oxygen Delivery Method Room Air Intake Visit Reasons: Botox Intake Note: Botox 200 Science Manager Required: No Accompanied by: Madisyn - staff Allergies morphine Allergy (Mild, Verified 02/25/25 14:52) Unresponsive Medication List - Last Reconciled 02/25/25 by Bernice Song MD albuterol sulfate 90 mcg/actuation 0 mcg inhalation alcohol swabs (Alcohol Prep Pads) pad topical baclofen 10 mg orally tid and 2 tasb at bedtime; blood sugar diagnostic (FreeStyle Lite Strips) As directed cetirizine 10 mg PO DAILY cholecalciferol (vitamin D3) 10 mcg PO DAILY divalproex 500 mg PO TID divalproex (Depakote) 500 mg PO BID docusate sodium (Dulcolax Stool Softener (docusate)) 100 mg PO BID fluticasone propionate 50 mcg/actuation sprays intranasal insulin aspart U-100 (Novolog FlexPen U-100 Insulin aspart) 6 units subcut TID insulin glargine-yfgn units subcut insulin lispro subcut lancets (FreeStyle Lancets) As directed levothyroxine 75 mcg PO DAILY mirabegron ER (Myrbetriq) 50 mg PO DAILY onabotulinumtoxinA (Botox) 200 units IM [id number] pantoprazole 40 mg PO DAILY pen needle, diabetic (BD Ultra-Fine Short Pen Needle) As directed rosuvastatin 10 mg PO BEDTIME sertraline 100 mg PO DAILY solifenacin mg PO DAILY sumatriptan succinate 50 mg PO Q2H PRN MDD 4 tabs HPI Comments Details: ? 59y/o female comes for treatment of migraines with botox.How many migraine days prior to botox How long do the migraines last Intensity of migraine ER visits related to migraine Effectiveness of botox from last two treatment(s) How many migraine days since receiving treatment: Change? in intensity of migraine? Change in frequency of migraine? Change in use of acute medication for migraine? Change in quality of life? ER visits related to migraine? Explanation for any gaps in treatment- Have at least three months elapsed since last treatment (Last botox date - frequency of injections) 3 months ??? Most frequent reported adverse reactions following injection of botox for chronic migraine include neck pain (9%), headache(5%), eyelid ptosis(4%), migraine(4%), muscular weakness(4%), musculuskeletal stiffness(4%), bronchitis(3%), injection site pain (3%), musculoskeletal pain(3%), myalgia(3%), facial paresis(2%), HTN(2%) and muscle spasms(2%) were discussed in detail. ??? Botulinum toxin typeA 200units Lot no [id number] expiration Feb 2027 was diluted with 4 cc of normal saline . ??? Muscles injected- ??? Frontalis 4 sites ??? Procerus 1 site ??? Metal Forger'S Assistant- 2 sites ??? Temporalis- 8 sites ??? Occipitalis- 6 sites ??? Cervical paraspinals- 4 sites ??? Trapezius- 6 sites- 10 units each ??? 5 units each in 31 site ??? Total use- 185units ??? Discarded-15units [facility] Medical History Chronic migraine without aura or status migrainosus Bronchitis Asthma Diabetes Arthritis Neck pain Back pain Anxiety Depression Chronic migraine with aura Spastic quadriparesis Blindness Surgical History Hx laparoscopic cholecystectomy History of eye removal Hx of breast reduction, elective Social History Alcohol intake: never Patient Tobacco Use Status: Never used Tobacco Physical Exam Vital Signs: Last Vital Signs Pulse 89 02/25/25 14:58 BP 128/80 02/25/25 14:58 Pulse Ox 100 02/25/25 14:58 Oxygen Delivery Method Room Air 02/25/25 14:58 BMI result Body Mass Index 30.1 Const General: cooperative Nutritional Appearance: average body habitus Orientation/consciousness: patient oriented x3 HEENT Head: Yes normal to inspection Neck Other: decreased range of motion Neuro General: patient oriented x3 Office Procedures Botulinum toxin Injection 04968 - Migraine Procedure code (CPT) selection complete Office Meds onabotulinumtoxinA 200 unit solution for injection Performing Provider: Bernice Song MD Performing Location: [facility] Administered by: Bernice Song MD on 02/25/25 15:41 Dose Route Admin Location Dispensed Lot Number Expiration Date [facility] Retail Solar Advisor 185 unit subcut 200 units [id number] ALLERGAN/BOTOX Total Dispensed Waste 200 units 7.5 % Comments: see HPI Assessment & Plan Assessment & Plan (1) Chronic migraine without aura or status migrainosus: Code(s): G43.709 - Chronic migraine without aura, not intractable, without status migrainosus Category: Medical Qualifiers: Intractability: intractable Qualified Code(s): G43.719 - Chronic migraine without aura, intractable, without status migrainosus Plan Patient tolerated the procedure well she will call with any side effects. Orders: Orders AMB Botulinum toxin Injection Today G43.719 - Chronic migraine without aura, intractable, without status migrainosus Coding Level of Care Code Est Pt Level 1 (18271) Diagnoses Intractable chronic migraine without aura and without status migrainosus G43.719 Intractability: intractable CPT Codes Botox Injection - Botox 3: 92975 - Migraine ([id number])
[2025-02-25 14:58] VITALS: BP 128/80; PULSE 89; O2SAT 100; BMI 30.1
--- OUTSIDE RECORDS SUMMARY | 2025-02-25 19:17 | XMS_ITS | Encounter Summary ---
Author Organization [employer] Address [address] [place] [address] Care Team Providers Care Electronic Semiconductor Processor Name Role Phone Saman Campbell NP Primary Care Provider [phone] Encounter Details Date Type Department Care Team (Latest Contact Info) Description 02/25/2025 Lab Requisition [facility] - Main Lab [address] [facility] [place] [address] Gregory Alicea MD [address] [place] [address] Type 2 diabetes mellitus without complications (CMS/HCC V24, CMS/[facility] V28) Social History Tobacco Use Types Packs/Day [...] Procedure Name Priority Date/Time Associated Diagnosis Comments BASIC METABOLIC PANEL Routine 02/25/2025 5:58 AM EST Type 2 diabetes mellitus without complications (CMS/[facility] V24, CMS/[facility] V28) documented in this encounter Results * (ABNORMAL) Basic metabolic panel (02/25/2025 5:58 AM EST) Sodium 134 133 - 145 mmol/L 02/25/2025 12:35 PM [facility] Potassium 4.3 3.5 - 5.5 mmol/L 02/25/2025 12:35 PM [facility] Chloride 94(L) 96 - 110 mmol/L 02/25/2025 12:35 PM [facility] CO2 31 21 - 32 mmol/L 02/25/2025 12:35 PM [facility] Anion Gap 9 3 - 11 02/25/2025 12:35 PM [facility] Glucose 149(H) 70 - 100 mg/dL 02/25/2025 12:35 PM [facility] BUN 13 5 - 25 mg/dL 02/25/2025 12:35 PM [facility] Creatinine 0.72 0.50 - 1.10 mg/dL 02/25/2025 12:35 PM EST [facility] eGFR 97 >=60 mL/min/1. 73m2 02/25/2025 12:35 PM EST [facility] Comment:Calculation based on the Chronic Kidney Disease Epidemiology Collaboration (CKD-EPI) equation refit without adjustment for race. BUN/Creatinine Ratio 18.1 02/25/2025 12:35 PM EST [facility] Calcium 9.1 8.5 - 10.5 mg/dL 02/25/2025 12:35 PM EST [facility] Blood Venous blood specimen / Unknown Venipuncture / Unknown 02/25/2025 5:58 AM EST 02/25/2025 10:43 AM EST us Gregory Alicea MD LAB BLOOD ORDERABLES Final R esult [facility] [address] [place] [address], documented in this encounter Visit Diagnoses Diagnosis Type 2 diabetes mellitus without complications (CMS/HCC V24, CMS/HCC V28) documented in this encounter Care Teams Electronic Semiconductor Processor Relationship Specialty Start Date End Date Saman Campbell NP [address] [place] [address] [address] [place], [place] PCP - General Nurse Practitioner 07/04/24 documented as of this encounter
--- OUTSIDE RECORDS SUMMARY | 2025-02-25 19:17 | XMS_ITS | Encounter Summary ---
Author Organization [employer] Address [address] [place] [address] Care Team Providers Care Trackless Trolley Driver Name Role Phone Saman Campbell NP Primary Care Provider [phone] Encounter Details Date Type Department Care Team (Latest Contact Info) Description 06/10/2024 Lab Requisition [facility] - Main Lab [address] [facility] [place] [address] Gregory Alicea MD [address] [place] [address] Hypothyroidism, unspecified; Type 2 diabetes mellitus without [...] V28) documented in this encounter Care Teams Trackless Trolley Driver Relationship Specialty Start Date End Date Saman Campbell NP [address] [place] [address] [address] [place], [place] PCP - General Nurse Practitioner 07/04/24 documented as of this encounter
--- OUTSIDE RECORDS SUMMARY | 2025-02-25 19:17 | XMS_ITS | Encounter Summary ---
Author Organization [employer] Address [address] [place] [address] Care Team Providers Care Manual Arts Therapist Name Role Phone Saman Campbell NP Primary Care Provider [phone] Encounter Details Date Type Department Care Team (Latest Contact Info) Description 10/18/2024 Lab Requisition [facility] - Main Lab [address] [facility] [place] [address] Gregory Alicea MD [address] [place] [address] Type 2 diabetes mellitus without complications (CMS/HCC [...] EDT Type 2 diabetes mellitus without complications ([facility] V24, [facility] V28) Hyperlipidemia, unspecified COMPLETE BLOOD COUNT Routine 10/18/2024 5:44 AM EDT Type 2 diabetes mellitus without complications ([facility] V24, CMS/[facility] V28) Hyperlipidemia, unspecified THYROID STIMULATING HORMONE Routine 10/18/2024 5:44 AM EDT Type 2 diabetes mellitus without complications ([facility] V24, CMS/HCC V28) Hyperlipidemia, unspecified MAGNESIUM Routine 10/18/2024 5:44 AM EDT Type 2 diabetes mellitus without complications ([facility]/HCC V24, CMS/[facility] V28) Hyperlipidemia, unspecified HEMOGLOBIN A1C Routine 10/18/2024 5:44 AM EDT Type 2 diabetes mellitus without complications ([facility] V24, CMS/[facility] V28) Hyperlipidemia, unspecified VITAMIN B12 Routine 10/18/2024 5:44 AM EDT Type 2 diabetes mellitus without complications ([facility] V24, CMS/[facility] V28) Hyperlipidemia, unspecified BASIC METABOLIC PANEL Routine 10/18/2024 5:44 AM EDT Type 2 diabetes mellitus without complications ([facility]/HCC V24, [facility] V28) Hyperlipidemia, unspecified documented in this encounter Results * Lipid panel with reflex to direct LDL (10/18/2024 5:44 AM EDT) Cholesterol 99 0 - 200 mg/dL LAB CHEMISTRY METHOD 10/18/2024 10:37 AM EDT [facility] Triglycerides 93 0 - 150 mg/dL LAB CHEMISTRY METHOD 10/18/2024 10:37 AM EDT [facility] HDL 50 >=40 mg/dL LAB CHEMISTRY METHOD 10/18/2024 10:37 AM [facility] LDL Calculated 30 0 - 100 mg/dL LAB CHEMISTRY METHOD 10/18/2024 10:37 AM [facility] Comment:Estimated LDL Calcul ated using equation: Total cholesterol - HDL cholesterol - (Triglycerides/5) VLDL Cholesterol Reji 18.6 mg/dL LAB CHEMISTRY METHOD 10/18/2024 10:37 AM [facility] Non HDL Chol. (LDL+VLDL) 49 <145 mg/dL LAB CHEMISTRY METHOD 10/18/2024 10:37 AM [facility] Chol/HDL Ratio 2.0 0.0 - 4.4 LAB CHEMISTRY METHOD 10/18/2024 10:37 AM [facility] Blood Venous blood specimen / Unknown Venipuncture / Unknown 10/18/2024 5:44 AM EDT 10/18/2024 8:27 AM EDT us Gregory Alicea MD LAB BLOOD ORDERABLES Final R esult [facility] [address] [place] [address], * Thyroid stimulating hormone (10/18/2024 5:44 AM EDT) TSH 1.86 0.40 - 4.00 mcIU/mL LAB CHEMISTRY METHOD 10/18/2024 11:50 AM EDT [facility] Blood Venous blood specimen / Unknown Venipuncture / Unknown 10/18/2024 5:44 AM EDT 10/18/2024 8:27 AM EDT us Gregory Alicea MD LAB BLOOD ORDERABLES Final R esult Performing Organization Address [facility] de Phone Number [facility] [address] [place] [address], [place] [phone] * (ABNORMAL) Vitamin B12 (10/18/2024 5:44 AM EDT) [facility] Vitamin B-12 967(H) 250 - 900 pcg/mL LAB CHEMISTRY METHOD 10/18/2024 10:37 AM EDT [facility] Blood Venous blood specimen / Unknown Venipuncture / Unknown 10/18/2024 5:44 AM EDT 10/18/2024 8:27 AM EDT us Gregory Alicea MD LAB BLOOD ORDERABLES Final R esult Performing Organization Address [facility] de Phone Number [facility] [address] [place] [address], [place] [phone] * Magnesium (10/18/2024 5:44 AM EDT) [facility] Magnesium 1.9 1.9 - 2.6 mg/dL LAB CHEMISTRY METHOD 10/18/2024 10:07 AM EDT [facility] Blood Venous blood specimen / Unknown Venipuncture / Unknown 10/18/2024 5:44 AM EDT 10/18/2024 8:27 AM EDT us Gregory Alicea MD LAB BLOOD ORDERABLES Final R esult Performing Organization Address City/[facility] Co de Phone Number [facility] [address] [place] [address], [place] [phone] * (ABNORMAL) Hemoglobin A1c (10/18/2024 5:44 AM EDT) [facility] Hemoglobin A1C 7.0(H) <6.5 % LAB CHEMISTRY METHOD 10/18/2024 2:08 PM EDT [facility] Mean Bld Glu Estim. 154 mg/dL LAB CHEMISTRY METHOD 10/18/2024 2:08 PM EDT [facility] Blood Venous blood specimen / Unknown Venipuncture / Unknown 10/18/2024 5:44 AM EDT 10/18/2024 8:27 AM EDT Gregory Alicea MD LAB BLOOD ORDERABLES Final R esult [facility] [address] [place] [address], [place] [phone] * (ABNORMAL) Basic metabolic panel (10/18/2024 5:44 AM EDT) [facility] Sodium 133 133 - 145 mmol/L LAB CHEMISTRY METHOD 10/18/2024 10:07 AM [facility] Potassium 4.3 3.5 - 5.5 mmol/L LAB CHEMISTRY METHOD 10/18/2024 10:07 AM [facility] Chloride 100 96 - 110 mmol/L LAB CHEMISTRY METHOD 10/18/2024 10:07 AM [facility] CO2 29 21 - 32 mmol/L LAB CHEMISTRY METHOD 10/18/2024 10:07 AM [facility] Anion Gap 4 3 - 11 LAB CHEMISTRY METHOD 10/18/2024 10:07 AM [facility] Glucose 164(H) 70 - 100 mg/dL LAB CHEMISTRY METHOD 10/18/2024 10:07 AM [facility] BUN 17 5 - 25 mg/dL LAB CHEMISTRY METHOD 10/18/2024 10:07 AM EDT [facility] Creatinine 0.53 0.50 - 1.10 mg/dL LAB CHE[facility]STRY [facility] e[facility] 108 >=60 mL/min/1. 73m2 LAB CHEMISTRY METHOD 10/18/2024 10:07 AM [facility] Comment:Calculation based on the Chronic Kidney Disease Epidemiology Collaboration (CKD-EPI) equation refit without adjustment for race. BUN/Creatinine Ratio 32.1 LAB CHEMISTRY METHOD 10/18/2024 10:07 AM [facility] Calcium 9.3 8.5 - 10.5 mg/dL LAB CHEMISTRY METHOD 10/18/2024 10:07 AM [facility] Blood Venous blood specimen / Unknown Venipuncture / Unknown 10/18/2024 5:44 AM EDT 10/18/2024 8:27 AM EDT us Gregory Alicea MD LAB BLOOD ORDERABLES Final R esult [facility] [address] [place] [address], * (ABNORMAL) Complete blood count (10/18/2024 5:44 AM EDT) WBC 4.7(L) 4.8 - 10.8 K/mcL LAB HEMETOLOGY METHOD 10/18/2024 9:47 AM EDT [facility] RBC 3.80 3.80 - 4.80 M/mcL LAB HEMETOLOGY METHOD 10/18/2024 9:47 AM EDT [facility] Hemoglobin 11.2(L) 11.5 - 16.0 g/dL LAB HEMETOLOGY METHOD [facility] Hematocrit 33.6(L) 35.0 - 47.0 % LAB HEMETOLOGY METHOD 10/18/2024 9:47 AM EDT [facility] MCV 89.4 79.0 - 98.0 FL LAB HEMETOLOGY METHOD 10/18/2024 9:47 AM EDT [facility] MCH 29.8 27.0 - 32.0 pcg LAB HEMETOLOGY METHOD 10/18/2024 9:47 AM EDT [facility] MCHC 33.3 32.0 - 37.0 g/dL LAB HEMETOLOGY METHOD 10/18/2024 9:47 AM T [facility] RDW 13.2 11.0 - 15.0 % LAB HEMETOLOGY METHOD 10/18/2024 9:47 AM [facility] Platelets 188 130 - 400 K/mcL LAB HEMETOLOGY METHOD 10/18/2024 9:47 AM T [facility] MPV 9.9 7.0 - 11.0 FL LAB HEMETOLOGY METHOD 10/18/2024 9:47 AM EDT [facility] NRBC 0.0 <1.0 % LAB HEMETOLOGY METHOD 10/18/2024 9:47 AM [facility] NRBC Absolute 0.00 <0.10 K/mcL LAB HEMETOLOGY METHOD 10/18/2024 9:47 AM [facility] Blood Venous blood specimen / Unknown Venipuncture / Unknown 10/18/2024 5:44 AM EDT 10/18/2024 8:27 AM EDT us Gregory Alicea MD LAB BLOOD ORDERABLES Final R esult [facility] [address] [place] [address], documented in this encounter Visit Diagnoses Diagnosis Type 2 diabetes mellitus without complications (CMS/HCC V24, CMS/HCC V28) Hyperlipidemia, unspecified documented in this encounter Care Teams Manual Arts Therapist Relationship Specialty Start Date End Date Saman Campbell NP [address] [facility] [address] [place], [place] PCP - General Nurse Practitioner 07/04/24 documented as of this encounter
--- OUTSIDE RECORDS SUMMARY | 2025-02-25 19:17 | XMS_ITS | Clinical Summary ---
Author Organization [address] [facility] Address [address] [place] [address] Phone Care Team Providers Care Appraiser Timber Name Role Phone Saman Campbell NP Primary Care Provider [phone] Allergies Active Allergy Reactions Criticality Noted Date [...] Blind in both eyes 12/18/2023 Cerebral palsy 12/18/2023 GERD (gastroesophageal reflux disease) 4 Encounters Date Type Department Care Team Description 02/25/2025 Lab Requisition [facility] - Main Lab [address] [facility] [place] [address] Gregory Alicea MD Type 2 diabetes mellitus without complications ([facility] V24, [facility] V28) from Last 3 Months Immunizations Immunization Administration Dates Next Due COVID-19 (Moderna/Spikevax) 12yo and older 12/20 Medical History Medical History Date Comments Diabetes mellitus ([facility] V24, [facility] V28) Asthma Blind Anxiety Cerebral palsy ([facility] V24, [facility] V28) Glaucoma Social History Tobacco Use Types [...] 1985 Cervical Cancer Screening: Pap Smear 11/12/1987 RSV Immunization Adult Patients (1 - Risk 50-74 years 1-dose series) 2016 Zoster Vaccines (1 of 2) 2016 HIV Screening 04/11/2023 Hepatitis C Screening 04/11/2023 Medicare Annual Wellness Visit 04/11/2023 Social Influencers of Health Screening 04/11/2023 Diabetes: Annual Urine Albumin-Creatinine Ratio (uACR) 02/19/2024 Depression Screening 03/13/2024 COVID-19 Vaccine ( season) 2024 12/20/2021, 06/10/2020, 05/20/2020 Influenza Vaccine (#1) 2024 Diabetes: Blood Sugar Control Test (HGBA1C) 04/20/2025 10/18/2024, 05/21/2024, 03/22/2024 Diabetes: Annual GFR (Glomerular Filtration Rate) 10/18/2025 02/25/2025, 10/18/2024, 06/04/2024, Additional history exists Breast Cancer Screening 07/04/2026 [...] EST Type 2 diabetes mellitus without complications ([facility] V24, [facility] V28) HEMOGLOBIN A1C Routine 10/18/2024 5:44 AM EDT Type 2 diabetes mellitus without complications ([facility] V24, [facility] V28) Hyperlipidemia, unspecified LIPID PANEL WITH REFLEX TO DIRECT LDL Routine 10/18/2024 5:44 AM EDT Type 2 diabetes mellitus without complications ([facility] V24, [facility] V28) Hyperlipidemia, unspecified MG MAMMO DIGITAL SCREENING W WATSON BILAT Routine 07/04/2024 2:14 PM EDT Encounter for screening mammogram for malignant neoplasm of breast HM COLONOSCOPY Routine 02/08/2017 from Last 3 Months or Most Recently Relevant to Health Maintenance Results * (ABNORMAL) Basic metabolic panel (02/25/2025 5:58 AM EST) Sodium 134 133 - 145 mmol/L 02/25/2025 12:35 PM [facility] Potassium 4.3 3.5 - 5.5 mmol/L 02/25/2025 12:35 PM [facility] Chloride 94(L) 96 - 110 mmol/L 02/25/2025 12:35 PM [facility] CO2 31 21 - 32 mmol/L 02/25/2025 12:35 PM [facility] Anion Gap 9 3 - 11 02/25/2025 12:35 PM [facility] Glucose 149(H) 70 - 100 mg/dL 02/25/2025 12:35 PM [facility] BUN 13 5 - 25 mg/dL 02/25/2025 12:35 PM [facility] Creatinine 0.72 0.50 - 1.10 mg/dL 02/25/2025 12:35 PM [facility] eGFR 97 >=60 mL/min/1. 73m2 02/25/2025 12:35 PM [facility] Comment:Calculation based on the Chronic Kidney Disease Epidemiology Collaboration (CKD-EPI) equation refit without adjustment for race. BUN/Creatinine Ratio 18.1 02/25/2025 12:35 PM EST [facility] Calcium 9.1 8.5 - 10.5 mg/dL 02/25/2025 12:35 PM EST [facility] Blood Venous blood specimen / Unknown Venipuncture / Unknown 02/25/2025 5:58 AM EST 02/25/2025 10:43 AM EST us Gregory Alicea MD LAB BLOOD ORDERABLES Final R esult [facility] [address] [place] [address], * Lipid panel with reflex to direct LDL (10/18/2024 5:44 AM EDT) Cholesterol 99 0 - 200 mg/dL LAB CHEMISTRY METHOD 10/18/2024 10:37 AM [facility] Triglycerides 93 0 - 150 mg/dL LAB CHEMISTRY METHOD 10/18/2024 10:37 AM [facility] HDL 50 >=40 mg/dL LAB CHEMISTRY METHOD 10/18/2024 10:37 AM [facility] LDL Calculated 30 0 - 100 mg/dL LAB CHEMISTRY METHOD 10/18/2024 10:37 AM [facility] Comment:Estimated LDL Calcul ated using equation: Total cholesterol - HDL cholesterol - (Triglycerides/5) VLDL Cholesterol Reji 18.6 mg/dL LAB CHEMISTRY METHOD 10/18/2024 10:37 AM [facility] Non HDL Chol. (LDL+VLDL) 49 <145 mg/dL LAB CHEMISTRY METHOD 10/18/2024 10:37 AM [facility] Chol/HDL Ratio 2.0 0.0 - 4.4 LAB CHEMISTRY METHOD 10/18/2024 10:37 AM [facility] Blood Venous blood specimen / Unknown Venipuncture / Unknown 10/18/2024 5:44 AM EDT 10/18/2024 8:27 AM EDT Gregory Alicea MD LAB BLOOD ORDERABLES Final R esult Performing Organization Address [facility]/ZIP Co de Phone Number [facility] [address] [place] [address], [place] [phone] * (ABNORMAL) Hemoglobin A1c (10/18/2024 5:44 AM EDT) Hemoglobin A1C 7.0(H) <6.5 % LAB CHEMISTRY METHOD 10/18/2024 2:08 PM EDT [facility] Mean Bld Glu Estim. 154 mg/dL LAB CHEMISTRY METHOD 10/18/2024 2:08 PM EDT [facility] Blood Venous blood specimen / Unknown Venipuncture / Unknown 10/18/2024 5:44 AM EDT 10/18/2024 8:27 AM EDT Gregory Alicea MD LAB BLOOD ORDERABLES Final R esult Performing Organization Address City/[facility]/ZIP Co de Phone Number [facility] [address] [place] [address], [place] [phone] * MG Mammo Digital Screening w Watson [...] year. Mammography location: [facility] [address] [place], [address] -------- FINAL REPORT -------- Dictated By: Cesar Levine Dictated Date: 07/04/2024 16:45 ET Assigned Physician: Cesar Levine Reviewed and Electronically Signed By: Cesar Levine Signed Date: 07/04/2024 16:51 ET Workstation ID: [id number] Transcribed By: Self Edit Transcribed Date: 07/04/2024 [...] None Computer-aided detection was employed with the Screenz AI 3-D. TISSUE DENSITY: There are scattered [...] None Computer-aided detection was employed with the [employer] AI 3-D. TISSUE DENSITY: There are scattered [...] year. Mammography location: [facility] [address] [place], [address] -------- FINAL REPORT -------- Dictated By: Cesar Levine Dictated Date: 07/04/2024 16:45 ET Assigned Physician: Cesar Levine Reviewed and Electronically Signed By: Cesar Levine Signed Date: 07/04/2024 16:51 ET Workstation ID: [id number] Transcribed By: Self Edit Transcribed Date: 07/04/2024 16:45 ET Saman Campbell [employer] PROFESSIONAL IMG BI PROCEDURES Final Result * Colonoscopy (02/08/2017) Colonoscopy no interpretation , abstracted Anatomical Region Laterality Modality Other Historical Provider HEALTH MAINTENANCE Final Result from Last 3 Months or Most Recently Relevant to Health Maintenance Insurance * Guarantor: Renuka Ansari Account Type Relation to Patient Date of Phone Billing Address Personal/Family Self [address] [place] [address] [employer] MEDICARE Member Subscriber Plan / Payer (Ef fective 2013-Present) Name:RENUKA ANSARI Relation to Subscriber:Self Name:Renuka Ansari Payer ID:[id number] Group ID:[id number] Type:Not on file Address: [address] [place] [id number] MEDICAID - [place] Advance Directives Documents on File Type Date Recorded Patient Antique Repairer Expl anation Advance Directives and Livcullen g Will 03/07/2024 1:05 PM PROXY Care Teams Appraiser Timber Relationship Specialty Start Date End Date Saman Campbell NP [address] [place] [address] Rd [address] [place], [place] PCP - General Nurse Practitioner 07/04/24
--- OUTSIDE RECORDS SUMMARY | 2025-02-25 19:17 | XMS_ITS | Encounter Summary ---
Author Organization [employer] Address [address] [place] [address] Care Team Providers Care Fireboat Operator Name Role Phone Saman Campbell NP Primary Care Provider [phone] Encounter Details Date Type Department Care Team (Latest Contact Info) Description 05/21/2024 Lab Requisition [facility] - Main Lab [address] [facility] [place] [address] Gregory Alicea MD [address] [place] [address] Hypothyroidism, unspecified; Type 2 diabetes mellitus without [...] CBC auto differential (05/21/2024 11:01 AM EDT) [facility] WBC 4.3(L) 4.8 - 10.8 K/mcL LAB HEMETOLOGY METHOD 05/21/2024 11:42 AM EDT [facility] RBC 4.30 3.80 - 4.80 M/[facility] LAB HEMETOLOGY METHOD 05/21/2024 11:42 AM [facility] Hemoglobin 12.8 11.5 - 16.0 g/dL LAB HEMETOLOGY METHOD 05/21/2024 11:42 AM [facility] Hematocrit 38.4 35.0 - 47.0 % LAB HEMETOLOGY METHOD 05/21/2024 11:42 AM [facility] MCV 89.3 79.0 - 98.0 FL LAB HEMETOLOGY METHOD 05/21/2024 11:42 AM [facility] MCH 29.8 27.0 - 32.0 pcg LAB HEMETOLOGY METHOD 05/21/2024 11:42 AM [facility] MCHC 33.3 32.0 - 37.0 g/dL LAB HEMETOLOGY METHOD 05/21/2024 11:42 AM [facility] RDW 13.6 11.0 - 15.0 % LAB HEMETOLOGY METHOD 05/21/2024 11:42 AM [facility] Platelets 175 130 - 400 K/mcL LAB HEMETOLOGY METHOD 05/21/2024 11:42 AM [facility] MPV 10.0 7.0 - 11.0 FL LAB HEMETOLOGY METHOD 05/21/2024 11:42 AM [facility] NRBC 0.0 <1.0 % LAB HEMETOLOGY METHOD 05/21/2024 11:42 AM [facility] NRBC Absolute 0.00 <0.10 K/mcL LAB HEMETOLOGY METHOD 05/21/2024 11:42 AM [facility] Neutrophils Relative 58.3 % LAB HEMETOLOGY METHOD 05/21/2024 11:42 AM [facility] Lymphocytes Relative 30.6 % LAB HEMETOLOGY METHOD 05/21/2024 11:42 AM [facility] Monocytes Relative 8.8 % LAB HEMETOLOGY METHOD 05/21/2024 11:42 AM EDT [facility] Eosinophils Relative 0.9 % LAB HEMETOLOGY METHOD 05/21/2024 11:42 AM EDT [facility] Basophils Relative 0.5 % LAB HEMETOLOGY METHOD 05/21/2024 11:42 AM EDT [facility] Immature Granulocytes Relative 0.9 % LAB HEMETOLOGY METHOD 05/21/2024 11:42 AM EDT [facility] Neutrophils Absolute 2.53 1.50 - 7.00 K/mcL LAB HEMETOLOGY METHOD 05/21/2024 11:42 AM EDT [facility] Lymphocytes Absolute 1.33 1.00 - 5.00 K/mcL LAB HEMETOLOGY METHOD 05/21/2024 11:42 AM EDT [facility] Monocytes Absolute 0.38 0.20 - 1.00 K/mcL LAB HEMETOLOGY METHOD 05/21/2024 11:42 AM EDT [facility] Eosinophils Absolute 0.04 0.00 - 0.50 K/mcL LAB HEMETOLOGY METHOD 05/[facility]24 [facility] Basophils Absolute 0.02 0.00 - 0.20 K/mcL LAB HEMETOLOGY METHOD 05/21/2024 11:42 AM EDT [facility] Immature Granulocytes Absolute 0.04(H) 0.00 - 0.03 K/mcL LAB HEMETOLOGY METHOD 05/21/2024 11:42 AM [facility] Blood Venous blood specimen / Unknown Venipuncture / Unknown 05/21/2024 11:01 AM EDT 05/21/2024 11:33 AM EDT us Gregory Alicea MD LAB BLOOD ORDERABLES Final R esult [facility] [address] [place] [address], [place] [phone] * Valproic acid level, total (05/21/2024 11:01 AM EDT) [facility] Valproic Acid, Total 55 50 - 100 mcg/mL LAB CHEMISTRY METHOD 05/21/2024 12:05 PM EDT [facility] Blood Venous blood specimen / Unknown Venipuncture / Unknown 05/21/2024 11:01 AM EDT 05/21/2024 11:33 AM EDT Gregory Alicea MD LAB BLOOD ORDERABLES Final R esult [facility] [address] [place] [address], [place] [phone] * (ABNORMAL) Hemoglobin A1c (05/21/2024 11:01 AM EDT) [facility] Hemoglobin A1C 7.9(H) <6.5 % LAB CHEMISTRY METHOD 05/21/2024 2:27 PM EDT [facility] Mean Bld Glu Estim. 180 mg/dL LAB CHEMISTRY METHOD 05/21/2024 2:27 PM EDT [facility] Blood Venous blood specimen / Unknown Venipuncture / Unknown 05/21/2024 11:01 AM EDT 05/21/2024 11:33 AM EDT Gregory Alicea MD LAB BLOOD ORDERABLES Final R esult [facility] [address] [place] [address], [place] [phone] * (ABNORMAL) Basic metabolic panel (05/21/2024 11:01 AM EDT) [facility] Sodium 133 133 - 145 mmol/L LAB CHEMISTRY METHOD 05/21/2024 12:05 PM EDT [facility] Potassium 4.2 3.5 - 5.5 mmol/L LAB CHEMISTRY METHOD 05/21/2024 12:05 PM [facility] Chloride 97 96 - 110 mmol/L LAB CHEMISTRY METHOD 05/21/2024 12:05 PM [facility] CO2 31 21 - 32 mmol/L LAB CHEMISTRY METHOD 05/21/2024 12:05 PM [facility] Anion Gap 5 3 - 11 LAB CHEMISTRY METHOD 05/21/2024 12:05 PM [facility] Glucose 161(H) 70 - 100 mg/dL LAB CHEMISTRY METHOD 05/21/2024 12:05 PM [facility] BUN 16 5 - 25 mg/dL LAB CHEMISTRY METHOD 05/21/2024 12:05 PM [facility] Creatinine 0.62 0.50 - 1.10 mg/dL LAB CHEMISTRY METHOD 05/21/2024 12:05 PM [facility] eGFR 104 >=60 mL/min/1. 73m2 LAB CHEMISTRY METHOD 05/21/2024 12:05 PM [facility] Comment:Calculation based on the Chronic Kidney Disease Epidemiology Collaboration (CKD-EPI) equation refit without adjustment for race. BUN/Creatinine Ratio 25.8 LAB CHEMISTRY METHOD 05/21/2024 12:05 PM [facility] Calcium 9.8 8.5 - 10.5 mg/dL LAB CHEMISTRY METHOD 05/21/2024 12:05 PM [facility] Blood Venous blood specimen / Unknown Venipuncture / Unknown 05/21/2024 11:01 AM EDT 05/21/2024 11:33 AM EDT us Gregory Alicea MD LAB BLOOD ORDERABLES Final R esult [facility] [address] [place], [place] [address] [phone] documented in this encounter Visit Diagnoses Diagnosis Hypothyroidism, unspecified Type 2 diabetes mellitus without complications (CMS/HCC V24, CMS/HCC V28) documented in this encounter Care Teams Fireboat Operator Relationship Specialty Start Date End Date Saman Campbell NP [address] [place] [address] [address] [place], [place] PCP - General Nurse Practitioner 07/04/24 documented as of this encounter
--- OUTSIDE RECORDS SUMMARY | 2025-02-25 19:17 | XMS_ITS | Continuity of Care Document ---
Author Organization [facility] [address] [place] [address] Phone [phone] Care Team Providers Care Optical Laboratory Mechanic Name Role Phone Kevin Bo M.D. Care Team Information Re ceiver [phone] Percy Messina M.D. Care Team Information Recei yamilex [phone] Problems Active Problems Provider Date Type 1 [...] SIG Qnty Indications Order ing Provider Date Freestyle Dora 3 Plus/Sensor/Glucose Monitoring SystemMisc 1 sensor to skin every 15 days dx: e11.9 6units E11.9 Kevin Bo M.D. 11/27/2024 Freestyle Dora 3/[place]/Glucose Monitoring Jhuoby6Hapjwt Device use as directed with sensors dx: e11.9 1units E11.9 Kevin Bo M.D. 11/27/2024 B-D Pen NDL SHRT [id number](07/26) Perfecto Use 4 Times A Day as Directed For Injecting Insulin 400units E10.9 Kevin Bo M.D. 07/18/[address] 1 tab by mouth three times a day Kevin Bo M.D. 03/29/2022 Freestyle Pipdlqq444 Use To Test Blood Sugar Four Times Daily Dx: E10.9 300units E10.9 Kevin Bo M.D. 02/07/2022 Lantus Fuomaelh790Mqzc/ML Solution Pen-Inject administer 16 Units Under The Skin Once Daily AT Bedtime 15units E11.9 Kevin Bo M.D. 11/16/2021 Alcohol Prep70% Pads Use 1 Pad 8 Times A Day To Test Blood Sugar And Inject Insulin as Directed 720units Kevin Bo M.D. 10/25/[address] 1 by mouth every day Unknown 0 000 Zddjbtzlkw692em Tablets 1 by mouth three times a day 270tabs Sho Campbell NP Rkrqqfpr59ra Tablets 2 tab by mouth at bedtime 60tabs Bernice Song MD Novolog Ptxyolb260Iuxf/ML Solution Pen-Inject inject 3 To 5 Units subcutaneously 3 (Three) Times A Day Before Meals 6units E10.9 Kevin Bo M.D. Rosuvastatin Tuvxtgf20nd Tablets 1 by mouth every day 90tabs Unknown Sertraline IVD373bx Tablets 1 by mouth every day Unknown 0 000 Levothyroxine Jmegzx14oum Tablets Take One Tablet By Mouth Every [...] 105 TSH With Reflex To FT4 11/03/2022 [facility] TSH With Reflex To FT4 1.07 uIU/mL (0.4-4.2 ) Complete Abc With Diff 11/03/2022 [facility] WBC 3.7 K/MM3 Low [...] ) Lymph # 1.8 K/MM3 (0.8-3.1 ) [place]# 0.4 K/MM3 (0.4-0.9 ) Eo # 0.1 K/MM3 (0.0-0.4 ) Baso # 0.0 K/MM3 (0.0-0.1 ) Abs. Imm Gran 0.0 K/MM3 Neut 38.9 % Low (44-76) Lymph 48.4 % High (15-43) Monocyte 9.7 % (4.5-10. 5) Eo 2.2 % (0-6) Baso 0.5 % (0-2) Imm Gran 0.3 % Lipid Panel 11/03/2022 [facility] Cholesterol, Total 115 mg/dL (<200) Triglyceride 56 mg/dL (<150) HDL Chol 51 mg/dL (>39) LDL Cholesterol , Calculated 53 mg/dL (0-130) Non HDL Cholesterol (Calc) 64 mg/dL (<160) Comprehensive Metabolic Panl 11/03/2022 [facility] Glucose 104 mg/dL High [...] Glucose Fingerstick 178 Comprehensive Metabolic Panl 03/29/2022 [facility] Glucose 252 mg/dL High [...] A1c 6.9% Complete Abc With Diff 10/27/2021 [facility] WBC 5.2 K/MM3 (4.0-11. [...] ) Lymph # 2.5 K/MM3 (0.8-3.1 ) [place]# 0.4 K/MM3 (0.4-0.9 ) Eo # 0.1 K/MM3 (0.0-0.4 ) Baso # 0.0 K/MM3 (0.0-0.1 ) Abs. Imm Gran 0.0 K/MM3 Neut 38.9 % Low (44-76) Lymph 49.3 % High (15-43) Monocyte 8.3 % (4.5-10. 5) Eo 2.3 % (0-6) Baso 0.6 % (0-2) Imm Gran 0.6 % Comprehensive Metabolic Panl 10/27/2021 [facility] Glucose 108 mg/dL High [...] 90 ML/MIN/1. 73M2 3 Lipid Panel 10/27/2021 [facility] Cholesterol, Total 120 mg/dL (<200) Triglyceride 55 mg/dL (<150) HDL Chol 49 mg/dL (>39) LDL Cholesterol , Calculated 60 mg/dL (0-130) Non HDL Cholesterol (Calc) 71 mg/dL (<160) Thyroid Panel 10/27/2021 [facility] Free T4 1.18 ng/dL [...] complications Kevin Bo M.D. Plan of Treatment No Information Available Functional Status Description No Information Available Mental Status Description No Information Available Referrals Description No Information Available
--- OUTSIDE RECORDS SUMMARY | 2025-02-25 19:17 | XMS_ITS | Encounter Summary ---
Author Organization [employer] Address [address] [place] [address] Care Team Providers Care Hospice Patient Care Secretary Name Role Phone Saman Campbell NP Primary Care Provider [phone] Encounter Details Date Type Department Care Team (Latest Contact Info) Description 06/03/2024 Lab Requisition [facility] - Main Lab [address] [facility] [place] [address] Gregory Alicea MD [address] [place] [address] Hypothyroidism, unspecified; Type 2 diabetes mellitus without [...] mmol/L LAB CHEMISTRY METHOD 06/04/2024 12:30 PM [facility] Potassium 4.0 3.5 - 5.5 mmol/L LAB CHEMISTRY METHOD 06/04/2024 12:30 PM [facility] Chloride 96 96 - 110 mmol/L LAB CHEMISTRY METHOD 06/04/2024 12:30 PM [facility] CO2 31 21 - 32 mmol/L LAB CHEMISTRY METHOD 06/04/2024 12:30 PM [facility] Anion Gap 4 3 - 11 LAB CHEMISTRY METHOD 06/04/2024 12:30 PM [facility] Glucose 67(L) 70 - 100 mg/dL LAB CHEMISTRY METHOD 06/04/2024 12:30 PM [facility] BUN 14 5 - 25 mg/dL LAB CHEMISTRY METHOD 06/04/2024 12:30 PM EDT [facility] Creatinine 0.44(L) 0.50 - 1.10 mg/dL LAB CHEMISTRY METHOD 06/04/2024 12:30 PM EDT [facility] eGFR 113 >=60 mL/min/1. 73m2 LAB CHEMISTRY METHOD 06/04/2024 12:30 PM EDT [facility] Comment:Calculation based on the Chronic Kidney Disease Epidemiology Collaboration (CKD-EPI) equation refit without adjustment for race. BUN/Creatinine Ratio 31.8 LAB CHEMISTRY METHOD 06/04/2024 12:30 PM EDT [facility] Calcium 8.9 8.5 - 10.5 mg/dL LAB CHEMISTRY METHOD 06/04/2024 12:30 PM EDT [facility] Blood Venous blood specimen / Unknown Venipuncture / Unknown 06/04/2024 5:10 AM EDT 06/04/2024 10:02 AM EDT us Gregory Alicea MD LAB BLOOD ORDERABLES Final R esult [facility] [address] [place] [address], * (ABNORMAL) Complete blood count (06/04/2024 5:10 AM EDT) WBC 4.3(L) 4.8 - 10.8 K/mcL LAB HEMETOLOGY METHOD 06/04/2024 11:18 AM EDT [facility] RBC 3.80 3.80 - 4.80 M/mcL LAB HEMETOLOGY METHOD 06/04/2024 11:18 AM EDT [facility] Hemoglobin 11.2(L) 11.5 - 16.0 g/dL LAB HEMETOLOGY METHOD 06/04/2024 11:18 AM EDT [facility] Hematocrit 33.6(L) 35.0 - 47.0 % LAB HEMETOLOGY METHOD 06/04/2024 11:18 AM EDT [facility] MCV 88.2 79.0 - 98.0 FL LAB HEMETOLOGY METHOD 06/04/2024 11:18 AM EDT [facility] MCH 29.4 27.0 - 32.0 pcg LAB HEMETOLOGY METHOD 06/04/2024 11:18 AM EDT [facility] MCHC 33.3 32.0 - 37.0 g/dL LAB HEMETOLOGY METHOD 06/04/2024 11:18 AM EDT [facility] RDW 13.2 11.0 - 15.0 % LAB HEMETOLOGY METHOD 06/04/2024 11:18 AM [facility] Platelets 157 130 - 400 K/mcL LAB HEMETOLOGY METHOD 06/04/2024 11:18 AM EDT [facility] MPV 10.1 7.0 - 11.0 FL LAB HEMETOLOGY METHOD 06/04/2024 11:18 AM EDT [facility] NRBC 0.0 <1.0 % LAB HEMETOLOGY METHOD 06/04/2024 11:18 AM [facility] NRBC Absolute 0.00 <0.10 K/mcL LAB HEMETOLOGY METHOD 06/04/2024 11:18 AM [facility] Blood Venous blood specimen / Unknown Venipuncture / Unknown 06/04/2024 5:10 AM EDT 06/04/2024 10:02 AM EDT us Gregory Alicea MD LAB BLOOD ORDERABLES Final R esult [facility] [address] [place] [address], documented in this encounter Visit Diagnoses Diagnosis Hypothyroidism, unspecified Type 2 diabetes mellitus without complications (CMS/HCC V24, CMS/[facility] V28) documented in this encounter Care Teams Hospice Patient Care Secretary Relationship Specialty Start Date End Date Saman Campbell NP [address] [place] [address] [address] [place], [place] PCP - General Nurse Practitioner 07/04/24 documented as of this encounter
--- OUTSIDE RECORDS SUMMARY | 2025-02-25 19:17 | XMS_ITS | Encounter Summary ---
Author Organization [employer] Address [address] [place] [address] Care Team Providers Care Culinary Instructor Name Role Phone Saman Campbell NP Primary Care Provider [phone] Encounter Details Date Type Department Care Team (Latest Contact Info) Description 05/27/2024 Lab Requisition [facility] - Main Lab [address] [facility] [place] [address] Gregory Alicea MD [address] [place] [address] Hypothyroidism, unspecified; Type 2 diabetes mellitus without [...] unspecified Type 2 diabetes mellitus without complications ([facility]/HCC) BASIC METABOLIC PANEL Routine 05/28/2024 6:33 AM EDT Hypothyroidism, unspecified Type 2 diabetes mellitus without complications ([facility]/HCC) documented in this encounter Results * (ABNORMAL) Basic metabolic panel (05/28/2024 6:33 AM EDT) Sodium 132(L) 133 - 145 mmol/L LAB CHEMISTRY METHOD 05/28/2024 8:47 AM [facility] Potassium 4.4 3.5 - 5.5 mmol/L LAB CHEMISTRY METHOD 05/28/2024 8:47 AM [facility] Comment:Hemolysis present Chloride 96 96 - 110 mmol/L LAB CHEMISTRY METHOD 05/28/2024 8:47 AM [facility] CO2 30 21 - 32 mmol/L LAB CHEMISTRY METHOD 05/28/2024 8:47 AM [facility] Anion Gap 6 3 - 11 LAB CHEMISTRY METHOD 05/28/2024 8:47 AM [facility] Glucose 83 70 - 100 mg/dL LAB CHEMISTRY METHOD 05/28/2024 8:[address] [facility] BUN 15 5 - 25 mg/dL LAB CHEMISTRY METHOD 05/28/2024 8:[address] [facility] Creatinine 0.53 0.50 - 1.10 mg/dL LAB CHEMISTRY METHOD 05/28/2024 8:[address] [facility] eGFR 108 >=60 mL/min/1. 73m2 LAB CHEMISTRY METHOD 05/28/2024 8:[address] [facility] Comment:Calculation based on the Chronic Kidney Disease Epidemiology Collaboration (CKD-EPI) equation refit without adjustment for race. BUN/Creatinine Ratio 28.3 LAB CHEMISTRY METHOD 05/28/2024 8:[address] [facility] Calcium 9.6 8.5 - 10.5 mg/dL LAB CHEMISTRY METHOD 05/28/2024 8:[address] [facility] Blood Venous blood specimen / Unknown 05/28/2024 6:33 AM EDT 05/28/2024 8:04 AM EDT us Gregory Alicea MD LAB BLOOD ORDERABLES Final R esult [facility] [address] [place] [address], * (ABNORMAL) Complete blood count (05/28/2024 6:33 AM EDT) WBC 4.4(L) 4.8 - 10.8 K/mcL LAB HEMETOLOGY METHOD 05/28/2024 8:[address] [facility] RBC 4.30 3.80 - 4.80 M/mcL LAB HEMETOLOGY METHOD 05/28/2024 8:[address] [facility] Hemoglobin 12.9 11.5 - 16.0 g/dL LAB HEMETOLOGY METHOD 05/28/2024 8:[address] [facility] Hematocrit 38.8 35.0 - 47.0 % LAB HEMETOLOGY METHOD 05/28/2024 8:[address] [facility] MCV 89.4 79.0 - 98.0 FL LAB HEMETOLOGY METHOD 05/28/2024 8:[address] [facility] MCH 29.7 27.0 - 32.0 pcg LAB HEMETOLOGY METHOD 05/28/2024 8:[address] [facility] MCHC 33.2 32.0 - 37.0 g/dL LAB HEMETOLOGY METHOD 05/28/2024 8:[address] [facility] RDW 13.2 11.0 - 15.0 % LAB HEMETOLOGY METHOD 05/28/2024 8:[address] [facility] Platelets 146 130 - 400 K/mcL LAB HEMETOLOGY METHOD 05/28/2024 8:[address] [facility] MPV 11.0 7.0 - 11.0 FL LAB HEMETOLOGY METHOD 05/28/2024 8:[address] [facility] NRBC 0.0 <1.0 % LAB HEMETOLOGY METHOD 05/28/2024 8:[address] [facility] NRBC Absolute 0.00 <0.10 K/mcL LAB HEMETOLOGY METHOD 05/28/2024 8:[address] [facility] Blood Venous blood specimen / Unknown 05/28/2024 6:33 AM EDT 05/28/2024 8:03 AM EDT us Gregory Alicea MD LAB BLOOD ORDERABLES Final R esult [facility] [address] [place] [address], documented in this encounter Visit Diagnoses Diagnosis Hypothyroidism, unspecified Type 2 diabetes mellitus without complications (CMS/HCC V24, CMS/[facility] V28) documented in this encounter Care Teams Culinary Instructor Relationship Specialty Start Date End Date Saman Campbell NP [address] [place] [address] [address] [place], [place] PCP - General Nurse Practitioner 07/04/24 documented as of this encounter
--- OUTSIDE RECORDS SUMMARY | 2025-02-25 19:17 | XMS_ITS | Encounter Summary ---
Author Organization [facility] Address [address] [place] [address] Care Team Providers Care Escrow Manager Name Role Phone Saman Campbell NP Primary Care Provider [phone] Encounter Details Date Type Department Care Team (Latest Contact Info) Description 03/22/2024 Lab Requisition [facility] - Main Lab [address] [facility] [place] [address] Edda Esparza MD [address] [place] [id number] Type 2 diabetes mellitus without complications (CMS/HCC [...] EST Type 2 diabetes mellitus without complications (CMS/[facility]) documented in this encounter Results * (ABNORMAL) Hemoglobin A1c (03/22/2024 4:53 AM EST) Hemoglobin A1C 8.7(H) <6.5 % LAB CHEMISTRY METHOD 03/22/2024 2:01 PM EST [facility] Mean Bld Glu Estim. 203 mg/dL LAB CHEMISTRY METHOD 03/22/2024 2:01 PM EST [facility] Blood Venous blood specimen / Unknown Venipuncture / Unknown 03/22/2024 4:53 AM EST 03/22/2024 10:32 AM EST us Edda Esparza MD LAB BLOOD ORDERABLES Final Resu lt [facility] [address] [place] [address], documented in this encounter Visit Diagnoses Diagnosis Type 2 diabetes mellitus without complications (CMS/HCC V24, CMS/HCC V28) documented in this encounter Care Teams Escrow Manager Relationship Specialty Start Date End Date Saman Campbell NP [address] [place] [address] [address] [place], [place] PCP - General Nurse Practitioner 07/04/24 documented as of this encounter
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
--- OUTSIDE RECORDS SUMMARY | 2025-02-25 19:17 | XMS_ITS | Encounter Summary ---
Author Organization [facility] Address [address] [place] [address] Care Team Providers Care Roofing Tile Sorter Name Role Phone Saman Campbell NP Primary Care Provider [phone] Encounter Details Date Type Department Care Team (Latest Contact Info) Description 03/07/2024 Lab Requisition [facility] - Main Lab [address] [facility] [place] [address] Edda Esparza MD [address] [place] [address] Type 2 diabetes mellitus without complications (CMS/HCC [...] EST Type 2 diabetes mellitus without complications ([facility]/HCC) COMPREHENSIVE METABOLIC PANEL Routine 03/07/2024 5:34 AM EST Type 2 diabetes mellitus without complications ([facility]/HCC) documented in this encounter Results * (ABNORMAL) Comprehensive metabolic panel (03/07/2024 5:34 AM EST) Sodium 136 133 - 145 mmol/L LAB CHEMISTRY METHOD 03/07/2024 12:19 PM [facility] Potassium 4.6 3.5 - 5.5 mmol/L LAB CHEMISTRY METHOD 03/07/2024 12:19 PM [facility] Chloride 103 96 - 110 mmol/L LAB CHEMISTRY METHOD 03/07/2024 12:19 PM [facility] CO2 30 21 - 32 mmol/L LAB CHEMISTRY METHOD 03/07/2024 12:19 PM [facility] Anion Gap 3 3 - 11 LAB CHEMISTRY METHOD 03/07/2024 12:19 PM [facility] Glucose 216(H) 70 - 100 mg/dL LAB CHEMISTRY METHOD 03/07/2024 12:19 PM [facility] BUN 25 5 - 25 mg/dL LAB CHEMISTRY METHOD 03/07/2024 12:19 PM [facility] Creatinine 0.63 0.50 - 1.10 mg/dL LAB CHEMISTRY METHOD 03/07/2024 12:19 PM [facility] eGFR 104 >=60 mL/min/1. 73m2 LAB CHEMISTRY METHOD 03/07/2024 12:19 PM [facility] Comment:Calculation based on the Chronic Kidney Disease Epidemiology Collaboration (CKD-EPI) equation refit without adjustment for race. BUN/Creatinine Ratio 39.7 LAB CHEMISTRY METHOD 03/07/2024 12:19 PM [facility] Calcium 9.0 8.5 - 10.5 mg/dL LAB CHEMISTRY METHOD 03/07/2024 12:19 PM [facility] AST (SGOT) 7(L) 10 - 42 unit/L LAB CHEMISTRY METHOD 03/07/2024 12:19 PM [facility] ALT (SGPT) 14 10 - 60 unit/L LAB CHEMISTRY METHOD 03/07/2024 12:19 PM [facility] Alkaline Phosphatase 87 42 - 121 unit/L LAB CHEMISTRY METHOD 03/07/2024 12:19 PM [facility] Total Protein 6.4 6.0 - 8.0 g/dL LAB CHEMISTRY METHOD 03/07/2024 12:19 PM [facility] Albumin 2.9(L) 3.2 - 5.0 g/dL LAB CHEMISTRY METHOD 03/07/2024 12:19 PM [facility] Total Bilirubin 0.3 0.0 - 1.4 mg/dL LAB CHEMISTRY METHOD 03/07/2024 12:19 PM [facility] Blood Venous blood specimen / Unknown Venipuncture / Unknown 03/07/2024 5:34 AM EST 03/07/2024 11:13 AM EST us Edda Esparza MD LAB BLOOD ORDERABLES Final Resu lt [facility] [address] [place] [address], * (ABNORMAL) Complete blood count (03/07/2024 5:34 AM EST) WBC 4.7(L) 4.8 - 10.8 K/mcL LAB HEMETOLOGY METHOD 03/07/2024 11:56 AM EST [facility] RBC 3.80 3.80 - 4.80 M/mcL LAB HEMETOLOGY METHOD 03/07/2024 11:56 AM EST [facility] Hemoglobin 11.0(L) 11.5 - 16.0 g/dL LAB HEMETOLOGY METHOD 03/07/2024 11:56 AM [facility] Hematocrit 34.2(L) 35.0 - 47.0 % LAB HEMETOLOGY METHOD 03/07/2024 11:56 AM EST [facility] MCV 90.7 79.0 - 98.0 FL LAB HEMETOLOGY METHOD 03/07/2024 11:56 AM EST [facility] MCH 29.2 27.0 - 32.0 pcg LAB HEMETOLOGY METHOD 03/07/2024 11:56 AM EST [facility] MCHC 32.2 32.0 - 37.0 g/dL LAB HEMETOLOGY METHOD 03/07/2024 11:56 AM EST [facility] RDW 13.5 11.0 - 15.0 % LAB HEMETOLOGY METHOD 03/07/2024 11:56 AM EST [facility] Platelets 199 130 - 400 K/mcL LAB HEMETOLOGY METHOD 03/07/2024 11:56 AM [facility] MPV 10.3 7.0 - 11.0 FL LAB HEMETOLOGY METHOD 03/07/2024 11:56 AM EST [facility] NRBC 0.0 <1.0 % LAB HEMETOLOGY METHOD 03/07/2024 11:56 AM EST [facility] NRBC Absolute 0.00 <0.10 K/mcL LAB HEMETOLOGY METHOD 03/07/2024 11:56 AM EST [facility] Blood Venous blood specimen / Unknown Venipuncture / Unknown 03/07/2024 5:34 AM EST 03/07/2024 11:13 AM EST us Edda Esparza MD LAB BLOOD ORDERABLES Final Resu lt [facility] [address] [place] [address], documented in this encounter Visit Diagnoses Diagnosis Type 2 diabetes mellitus without complications (CMS/HCC V24, CMS/HCC V28) documented in this encounter Care Teams Roofing Tile Sorter Relationship Specialty Start Date End Date Saman Campbell NP [address] [place] [address] [address] [place], [place] PCP - General Nurse Practitioner 07/04/24 documented as of this encounter
--- OUTSIDE RECORDS SUMMARY | 2025-02-25 19:17 | XMS_ITS | Encounter Summary ---
Author Organization [facility] Address [address] [place] [address] Care Team Providers Care Photographic Machine Operator Name Role Phone Saman Campbell NP Primary Care Provider [phone] Encounter Details Date Type Department Care Team (Late st Contact Info) Description 03/27/2024 Lab Requisition [facility] - Main Lab 299 [facility] [place] [address] Edda Esparza MD [address] [place] [address] Cerebral palsy, unspecified (CMS/HCC V24, CMS/HCC V28); [...] Assessment Author No 02/29/2024 7:51 PM Nathaniel Gnozalez RN * Do you have serious difficulty [...] K/mcL LAB HEMETOLOGY METHOD 03/27/2024 11:29 AM [facility] RBC 4.10 3.80 - 4.80 M/mcL LAB HEMETOLOGY METHOD 03/27/2024 11:29 AM [facility] Hemoglobin 12.0 11.5 - 16.0 g/dL LAB HEMETOLOGY METHOD 03/27/2024 11:29 AM [facility] Hematocrit 37.2 35.0 - 47.0 % LAB HEMETOLOGY METHOD 03/27/2024 11:29 AM [facility] MCV 91.0 79.0 - 98.0 FL LAB HEMETOLOGY METHOD 03/27/2024 11:29 AM [facility] MCH 29.3 27.0 - 32.0 pcg LAB HEMETOLOGY METHOD 03/27/2024 11:29 AM [facility] MCHC 32.3 32.0 - 37.0 g/dL LAB HEMETOLOGY METHOD 03/27/2024 11:29 AM [facility] RDW 13.3 11.0 - 15.0 % LAB HEMETOLOGY METHOD 03/27/2024 11:29 AM [facility] Platelets 155 130 - 400 K/mcL LAB HEMETOLOGY METHOD 03/27/2024 11:29 AM [facility] MPV 11.0 7.0 - 11.0 FL LAB HEMETOLOGY METHOD 03/27/2024 11:29 AM [facility] NRBC 0.0 <1.0 % LAB HEMETOLOGY METHOD 03/27/2024 11:29 AM [facility] NRBC Absolute 0.00 <0.10 K/mcL LAB HEMETOLOGY METHOD 03/27/2024 11:29 AM [facility] Neutrophils Relative 41.0 % LAB HEMETOLOGY METHOD 03/27/2024 11:29 AM [facility] Lymphocytes Relative 49.8 % LAB HEMETOLOGY METHOD 03/27/2024 11:29 AM [facility] Monocytes Relative 6.8 % LAB HEMETOLOGY METHOD 03/27/2024 11:29 AM [facility] Eosinophils Relative 1.4 % LAB HEMETOLOGY METHOD 03/27/2024 11:29 AM [facility] Basophils Relative 0.5 % LAB HEMETOLOGY METHOD 03/27/2024 11:29 AM EST [facility] Immature Granulocytes Relative 0.5 % LAB HEMETOLOGY METHOD 03/27/2024 11:29 AM [facility] Neutrophils Absolute 1.75 1.50 - 7.00 K/[facility] LAB HEMETOLOGY METHOD 03/27/2024 11:29 AM [facility] Lymphocytes Absolute 2.12 1.00 - 5.00 K/mcL LAB HEMETOLOGY METHOD 03/27/2024 11:29 AM [facility] Monocytes Absolute 0.29 0.20 - 1.00 K/[facility] LAB HEMETOLOGY METHOD 03/27/2024 11:29 AM [facility] Eosinophils Absolute 0.06 0.00 - 0.50 K/[facility] LAB HEMETOLOGY METHOD 03/27/2024 11:29 AM [facility] Basophils Absolute 0.02 0.00 - 0.20 K/mcL LAB HEMETOLOGY METHOD 03/27/2024 11:29 AM [facility] Immature Granulocytes Absolute 0.02 0.00 - 0.03 K/mcL LAB HEMETOLOGY METHOD 03/27/2024 11:29 AM [facility] Blood Venous blood specimen / Unknown Venipuncture / Unknown 03/27/2024 6:02 AM EST 03/27/2024 10:19 AM EST us Edda Esparza MD LAB BLOOD ORDERABLES Final Resu lt [facility] [address] [place] [address], * (ABNORMAL) Basic metabolic panel (03/27/2024 6:02 AM EST) Sodium 137 133 - 145 mmol/L LAB CHEMISTRY METHOD 03/27/2024 11:49 AM EST [facility] Potassium 3.9 3.5 - 5.5 mmol/L LAB CHEMISTRY METHOD 03/27/2024 11:49 AM [facility] Chloride 103 96 - 110 mmol/L LAB CHEMISTRY METHOD 03/27/2024 11:49 AM [facility] CO2 30 21 - 32 mmol/L LAB CHEMISTRY METHOD 03/27/2024 11:49 AM [facility] Anion Gap 4 3 - 11 LAB CHEMISTRY METHOD 03/27/2024 11:49 AM [facility] Glucose 142(H) 70 - 100 mg/dL LAB CHEMISTRY METHOD 03/27/2024 11:49 AM [facility] BUN 19 5 - 25 mg/dL LAB CHEMISTRY METHOD 03/27/2024 11:49 AM [facility] Creatinine 0.54 0.50 - 1.10 mg/dL LAB CHEMISTRY METHOD 03/27/2024 11:49 AM [facility] eGFR 108 >=60 mL/min/1. 73m2 LAB CHEMISTRY METHOD 03/27/2024 11:49 AM [facility] Comment:Calculation based on the Chronic Kidney Disease Epidemiology Collaboration (CKD-EPI) equation refit without adjustment for race. BUN/Creatinine Ratio 35.2 LAB CHEMISTRY METHOD 03/27/2024 11:49 AM [facility] Calcium 9.1 8.5 - 10.5 mg/dL LAB CHEMISTRY METHOD 03/27/2024 11:49 AM [facility] Blood Venous blood specimen / Unknown Venipuncture / Unknown 03/27/2024 6:02 AM EST 03/27/2024 10:19 AM EST us Edda Esparza MD LAB BLOOD ORDERABLES Final Resu lt [facility] [address] [place] [address], documented in this encounter Visit Diagnoses Diagnosis Cerebral palsy, unspecified (CMS/HCC V24, CMS/HCC V28) Elevated white blood cell count, unspecified documented in this encounter Care Teams Photographic Machine Operator Relationship Specialty Start Date End Date Saman Campbell NP [address] [place] [address] [address] [place], [place] PCP - General Nurse Practitioner 07/04/24 documented as of this encounter
--- OUTSIDE RECORDS SUMMARY | 2025-02-25 19:17 | XMS_ITS | Encounter Summary ---
Author Organization [facility] Address [address] [place] [address] Care Team Providers Care Associate Producer Name Role Phone Saman Campbell NP Primary Care Provider [phone] Encounter Details Date Type Department Care Team (Late st Contact Info) Description 06/06/2024 Lab Requisition [facility] - Main Lab [address] [place] [address] Gregory Alicea MD [address] [place] [address] Hypothyroidism, unspecified; Hyperlipidemia, unspecified Social History Tobacco [...] LAB CHEMISTRY METHOD 06/07/2024 11:32 AM EDT [facility] Blood Venous blood specimen / Unknown Venipuncture / Unknown 06/07/2024 8:23 AM EDT 06/07/2024 10:39 AM EDT us Gregory Alicea MD LAB BLOOD ORDERABLES Final R esult [facility] [address] [place] [address], documented in this encounter Visit Diagnoses Diagnosis Hypothyroidism, unspecified Hyperlipidemia, unspecified documented in this encounter Care Teams Associate Producer Relationship Specialty Start Date End Date Saman Campbell NP [address] [place] [address] [address] [place], [place] PCP - General Nurse Practitioner 07/04/24 documented as of this encounter
--- OUTSIDE RECORDS SUMMARY | 2025-02-25 19:17 | XMS_ITS | Encounter Summary ---
Author Organization [employer] Address [address] [place] [address] Care Team Providers Care Lease Operator Name Role Phone Saman Campbell NP Primary Care Provider [phone] Encounter Details Date Type Department Care Team (Late st Contact Info) Description 03/18/2024 Lab Requisition [facility] - Main Lab 299 [facility] [place] [address] Edda Esparza MD [address] [place] [address] Overactive bladder; Gastro-esophageal reflux disease without esophagitis; [...] mmol/L LAB CHEMISTRY METHOD 03/18/2024 11:42 AM [facility] Potassium 4.5 3.5 - 5.5 mmol/L LAB CHEMISTRY METHOD 03/18/2024 11:42 AM [facility] Chloride 102 96 - 110 mmol/L LAB CHEMISTRY METHOD 03/18/2024 11:42 AM [facility] CO2 27 21 - 32 mmol/L LAB CHEMISTRY METHOD 03/18/2024 11:42 AM [facility] Anion Gap 5 3 - 11 LAB CHEMISTRY METHOD 03/18/2024 11:42 AM [facility] Glucose 214(H) 70 - 100 mg/dL LAB CHEMISTRY METHOD 03/18/2024 11:[address] [facility] BUN 16 5 - 25 mg/dL LAB CHEMISTRY METHOD 03/18/2024 11:42 AM [facility] Creatinine 0.61 0.50 - 1.10 mg/dL LAB CHEMISTRY METHOD 03/18/2024 11:42 AM [facility] eGFR 104 >=60 mL/min/1. 73m2 LAB CHEMISTRY METHOD 03/18/2024 11:42 AM [facility] Comment:Calculation based on the Chronic Kidney Disease Epidemiology Collaboration (CKD-EPI) equation refit without adjustment for race. BUN/Creatinine Ratio 26.2 LAB CHEMISTRY METHOD 03/18/2024 11:42 AM [facility] Calcium 8.9 8.5 - 10.5 mg/dL LAB CHEMISTRY METHOD 03/18/2024 11:42 AM [facility] Blood Venous blood specimen / Unknown Venipuncture / Unknown 03/18/2024 5:12 AM EST 03/18/2024 10:16 AM EST us Edda Esparza MD LAB BLOOD ORDERABLES Final Resu lt [facility] [address] [place] [address], [place] [phone] * (ABNORMAL) Complete blood count (03/18/2024 5:12 AM EST) WBC 4.6(L) 4.8 - 10.8 K/mcL LAB HEMETOLOGY METHOD 03/18/2024 11:[address] [facility] RBC 4.10 3.80 - 4.80 M/mcL LAB HEMETOLOGY METHOD 03/18/2024 11:12 AM [facility] Hemoglobin 11.9 11.5 - 16.0 g/dL LAB HEMETOLOGY METHOD 03/18/2024 11:12 AM [facility] Hematocrit 37.1 35.0 - 47.0 % LAB HEMETOLOGY METHOD 03/18/2024 11:12 AM [facility] MCV 89.6 79.0 - 98.0 FL LAB HEMETOLOGY METHOD 03/18/2024 11:12 AM [facility] MCH 28.7 27.0 - 32.0 pcg LAB HEMETOLOGY METHOD 03/18/2024 11:12 AM [facility] MCHC 32.1 32.0 - 37.0 g/dL LAB HEMETOLOGY METHOD 03/18/2024 11:12 AM [facility] RDW 13.2 11.0 - 15.0 % LAB HEMETOLOGY METHOD 03/18/2024 11:12 AM [facility] Platelets 239 130 - 400 K/mcL LAB HEMETOLOGY METHOD 03/18/2024 11:12 AM [facility] MPV 10.3 7.0 - 11.0 FL LAB HEMETOLOGY METHOD 03/18/2024 11:12 AM [facility] NRBC 0.0 <1.0 % LAB HEMETOLOGY METHOD 03/18/2024 11:12 AM [facility] NRBC Absolute 0.00 <0.10 K/mcL LAB HEMETOLOGY METHOD 03/18/2024 11:12 AM [facility] Blood Venous blood specimen / Unknown Venipuncture / Unknown 03/18/2024 5:12 AM EST 03/18/2024 10:16 AM EST us Edda Esparza MD LAB BLOOD ORDERABLES Final Resu lt [facility] [address] [place] [address], [place] [phone] documented in this encounter Visit Diagnoses Diagnosis Overactive bladder Hypertonicity of bladder Gastro-esophageal reflux disease without esophagitis Unspecified asthma, uncomplicated Hyperlipidemia, unspecified documented in this encounter Care Teams Lease Operator Relationship Specialty Start Date End Date Saman Campbell NP [address] [facility] [address] [place], [place] PCP - General Nurse Practitioner 07/04/24 documented as of this encounter
--- OUTSIDE RECORDS SUMMARY | 2025-02-25 19:17 | XMS_ITS | Encounter Summary ---
Author Organization [facility] Address [address] [place] [address] Care Team Providers Care Molecular Biology Director Name Role Phone Saman Campbell NP Primary Care Provider [phone] Encounter Details Date Type Department Care Team (Late st Contact Info) Description 06/07/2024 Lab Requisition [facility] - Main Lab 299 [facility] [place] [address] Gregory Alicea MD [address] [place] [address] Hypo-osmolality and hyponatremia; Hyperlipidemia, unspecified; Hypothyroidism, unspecified [...] unspecified documented in this encounter Care Teams Molecular Biology Director Relationship Specialty Start Date End Date Saman Campbell NP [address] [place] [address] [address] [place], [place] PCP - General Nurse Practitioner 07/04/24 documented as of this encounter
--- OUTSIDE RECORDS SUMMARY | 2025-02-25 19:17 | XMS_ITS | Encounter Summary ---
Author Organization [facility] Address [address] [place] [address] Care Team Providers Care Wax Bleacher Name Role Phone Saman Campbell NP Primary Care Provider [phone] Encounter Details Date Type Department Care Team (Late st Contact Info) Description 04/25/2024 Lab Requisition [facility] - Main Lab 299 [facility] [place] [address] Edda Esparza MD [address] [place] [address] Other long-term (current) drug therapy Social History Tobacco Use [...] TOTAL Routine 04/25/2024 5:20 AM EST Other long term care pharmacist (current) drug therapy documented in this encounter [...] [facility] [address] [place] [address], documented in this encounter Visit Diagnoses Diagnosis Other long-term (current) drug therapy documented in this encounter Care Teams Wax Bleacher Relationship Specialty Start Date End Date Saman Campbell NP [address] [place] [address] [address] [place], [place] PCP - General Nurse Practitioner 07/04/24 documented as of this encounter
--- OUTSIDE RECORDS SUMMARY | 2025-02-25 19:17 | XMS_ITS | Encounter Summary ---
Author Organization [employer] Address [address] [place] [address] Care Team Providers Care Transportation Modeler Name Role Phone Saman Campbell NP Primary Care Provider [phone] Encounter Details Date Type Department Care Team (Latest Contact Info) Description 10/18/[address] [facility] - Main Lab 299 [facility] [place] [address] Gregory Alicea MD [address] [place] [address] Type 2 diabetes mellitus without complications (CMS/HCC [...] unspecified documented in this encounter Care Teams Transportation Modeler Relationship Specialty Start Date End Date Saman Campbell NP [address] [place] [address] [address] [place], [place] PCP - General Nurse Practitioner 07/04/24 documented as of this encounter
--- OUTSIDE RECORDS SUMMARY | 2025-02-25 19:17 | XMS_ITS | Patient Health Record ---
Author Organization [facility] Address [address] [place] [address] Care Team Providers Care Family Medicine Physician Name Role Phone Siddharth HUYNH, [place] Primary Care Provider Unavail Kevin Fajardo [phone] Reason For Referral No Information Encounters Encounter Location Date Provider Diagnosis [facility] [address] [place] [address] 03/11/2024 Kevin Morrow Plan Of Treatment No Information Insurance Providers Payer Name Payer Address Payer Phone Subscriber Number Group Number Insured Name Patient Relationship to Insured Coverage Start Date Coverage End Date [facility] [employer] Claims [address] JULISA Rogers [id number] Ina Ansari Self - patient is the insured
== END 2025-02-25 15:22 | disposition home or self-care (01) ==
PROVIDERS: PCP Internal Medicine; Visit Provider Psychiatry & Neurology Neurology
DX: G43.719 Chronic migraine without aura, intractable, without status migrainosus (principal)
CPT/HCPCS: 64615

== ENCOUNTER → 2025-02-25 14:56 | Outpatient (BNVA) | payer OTHER, SELFPAY | PROVIDERS: PCP Internal Medicine; Visit Provider Psychiatry & Neurology Neurology | DX: G43.719 Chronic migraine without aura, intractable, without status migrainosus (principal) | CPT/HCPCS: 64615; 99211; J0585 ==